=== PATIENT | male | born 1955 | race African-American/Black ===

== ENCOUNTER 2016-09-25 20:34 | Emergency (ER) | payer BC, MEDICAID ==
[~2016-09-25] VITALS: Ht 190.5 cm; Wt 77.0 kg
[~2016-09-25 20:34] MED LIST: AMLO10TA4 PO; Folic Acid PO; GABA300C PO; LISI-652 PO; Multivitamins,Ther W-Minerals PO; OMEP20CA10 PO; OMEP40CA34 PO; PANT40VI15 PO; Propranolol Hcl PO; Thiamine Hcl PO
[2016-09-25] MEDS ORDERED: TRAMADOL 50MG TABLET PO ONE (23:00)
[2016-09-25] MEDS ORDERED: KETOROLAC 60MG/2ML VIAL IM ONE (23:00)
[2016-09-26 04:27] VITALS: BP 132/60
== END 2016-09-26 04:31 | disposition home or self-care (01) ==
LOC: ER 20:43
DX: S00.83XA Contusion of other part of head, initial encounter (principal); W22.09XA Striking against other stationary object, initial encounter; I10 Essential (primary) hypertension; Y93.89 Activity, other specified; Y92.89 Other specified places as the place of occurrence of the external cause; Z96.641 Presence of right artificial hip joint
CPT/HCPCS: 70450; 96374; 99284; J1885; Z7610

== ENCOUNTER 2016-10-12 14:17 | Emergency (ER) | payer BC ==
[~2016-10-12] VITALS: Ht 190.5 cm; Wt 100.0 kg
[2016-10-12] MEDS ORDERED: KETOROLAC 60MG/2ML VIAL IM ONE (16:00)
[2016-10-12 20:30] VITALS: BP 130/68
== END 2016-10-12 20:42 | disposition home or self-care (01) ==
LOC: ER 18:14
DX: R51 Headache (principal); M54.2 Cervicalgia; G62.9 Polyneuropathy, unspecified; I10 Essential (primary) hypertension; Z99.3 Dependence on wheelchair; Y08.89XA Assault by other specified means, initial encounter; Y93.89 Activity, other specified; Y92.89 Other specified places as the place of occurrence of the external cause; Y99.8 Other external cause status
CPT/HCPCS: 70450; 70486; 96372; 99284; J1885; Z7610

== ENCOUNTER 2016-10-27 16:19 | Inpatient (IN) | payer BC ==
[~2016-10-27] VITALS: Ht 190.5 cm; Wt 72.1 kg
[2016-10-27] MEDS ORDERED: SODIUM CHLORIDE 0.9% 1,000 ML IV ONE ×2 (17:08→19:15)
[2016-10-27] MEDS ORDERED: KETOROLAC 30MG/ML VIAL IV STA (17:08)
[2016-10-27 17:31] LABS: BASOPHILS % 0.6 % (0.0-2.0); EOSINOPHILS % 0.2 % (0.0-5.0); HEMATOCRIT. 37.4 % (42.0-52.0); HEMOGLOBIN. 12.2 g/dL (14.0-18.0); LYMPHOCYTES % 38.5 % (20.0-50.0); MEAN CORPUSCULAR HEMOGLOBIN 33.7 pg (28.0-32.0); MEAN CORPUSCULAR VOLUME 103.1 fL (80.0-94.0); MONOCYTES % 7.9 % (2.0-8.0); NEUTROPHILS % 52.8 % (40.0-76.0); RED BLOOD CELL COUNT 3.63 mill/uL (4.7-6.1); RED CELL DISTRIBUTION WIDTH 18.9 % (11.6-14.6)
[2016-10-27 17:36] LABS: INR 1.1; PROTHROMBIN TIME 11.7 sec (9.4-11.6)
[2016-10-27 17:37] LABS: CHLORIDE 100 mEq/L (98-107)
[2016-10-27 17:38] LABS: CARBON DIOXIDE 13 mEq/L (21-32)
[2016-10-27 17:44] LABS: PLATELET 45 x1000/uL (130-400)
[2016-10-27 17:46] LABS: ETHANOL BLOOD 199 mg/dL; TROPONIN I < 0.02 ng/mL (0.00-0.04)
[2016-10-27] MEDS ORDERED: DILTIAZEM HCL 5MG/ML 5ML VIAL IV ONE ×4 (18:15→19:15)
[2016-10-27] MEDS ORDERED: ASPIRIN 81MG TABLET PO ONE (18:45)
[2016-10-27] MEDS ORDERED: SODIUM CHLORIDE 0.9% 1,000 ML IV SCH (19:07)
[2016-10-27] MEDS ORDERED: IBUPROFEN 600MG TABLET PO PRN (19:15)
[2016-10-27] MEDS ORDERED: DILTIAZEM HCL 240MG ER (24HR) PO ONE (19:15)
[2016-10-27] MEDS ORDERED: ACETAMINOPHEN 325MG TABLET PO PRN ×2 (19:15→23:15)
[2016-10-27] MEDS ORDERED: ENOXAPARIN 80MG/0.8ML SYR SUBCUT ONE (19:30)
[2016-10-27] MEDS ORDERED: DILTIAZEM HCL 125 MG in DEXT 5% WATER 100 ML IV ONE (19:30)
[2016-10-27] MEDS ORDERED: DILTIAZEM HCL 125 MG in DEXTROSE 5% WATER 125 ML IV PRN (19:45)
[2016-10-27 21:41] VITALS: BP 149/72
[2016-10-27 22:30] VITALS: BP 3/96
[2016-10-27 23:00] VITALS: BP 144/82
[2016-10-27] MEDS: THIAMINE HCL 100MG TABLET PO SCH (23:15)
[2016-10-27] MEDS ORDERED: IPRATROPIUM/ALBUTEROL 0.5-3(2.5)MG/3ML NEB INH PRN (23:15)
[2016-10-27] MEDS ORDERED: GUAIFENESIN 200MG/10ML SUGAR FREE UDC PO PRN (23:15)
[2016-10-27] MEDS: MULTIVITAMINS,THER W-MINERALS TABLET PO SCH (23:15)
[2016-10-27] MEDS ORDERED: CLONIDINE 0.1MG TABLET PO PRN (23:15)
[2016-10-27] MEDS ORDERED: MAGNESIUM/ALUMINUM HYDROXIDE/SIMETHICONE 30ML UDC PO PRN (23:15)
[2016-10-27] MEDS ORDERED: DOCUSATE SODIUM 100MG CAPSULE PO PRN (23:15)
[2016-10-27] MEDS: ONDANSETRON HCL 4MG/2ML VIAL IV PRN (23:41)
[2016-10-27 23:44] VITALS: BP 147/94
[2016-10-27] MEDS ORDERED: MORPHINE SULFATE 4 MG/ML CPJ (NOT FOR IM USE) IV PRN (23:45)
[2016-10-28] VITALS (45 sets, daily range): BP systolic 117–175; BP diastolic 70–112
[2016-10-28] MEDS: MORPHINE SULFATE 4 MG/ML CPJ (NOT FOR IM USE) IV PRN ×5 (00:27→18:11)
[2016-10-28] MEDS: MVI, ADULT NO.1 10 ML, FOLIC ACID 1 MG, THIAMINE HCL 100 MG in SODIUM CHLORIDE 0.9% 1,0... IV NR ×8 (01:41→04:04)
[2016-10-28] MEDS: HYDROCODONE/ACETAMINOPHEN 5/325MG TABLET PO PRN (02:53)
[2016-10-28] MEDS: DILTIAZEM HCL 125 MG in DEXT 5% WATER 100 ML IV PRN ×3 (04:05→21:35)
[2016-10-28] MEDS: ONDANSETRON HCL 4MG/2ML VIAL IV PRN ×2 (05:53→12:46)
[2016-10-28 06:22] LABS: HEMOGLOBIN. 12.5 g/dL (14.0-18.0); MEAN CORPUSCULAR HEMOGLOBIN 33.8 pg (28.0-32.0); MEAN CORPUSCULAR VOLUME 105.1 fL (80.0-94.0); MEAN PLATELET VOLUME 7.6 fl (7.4-10.4); RED BLOOD CELL COUNT 3.71 mill/uL (4.7-6.1); RED CELL DISTRIBUTION WIDTH 19.6 % (11.6-14.6)
[2016-10-28 06:36] LABS: PLATELET 42 x1000/uL (130-400)
[2016-10-28 07:42] LABS: CHLORIDE 104 mEq/L (98-107); CREATINE KINASE 849 IU/L (39-308); CREATINE KINASE MB FRACTION 2.6 ng/mL (0.5-3.6); TROPONIN I < 0.02 ng/mL (0.00-0.04)
[2016-10-28 07:45] LABS: CARBON DIOXIDE 7 mEq/L (21-32)
[2016-10-28 07:50] LABS: HDL CHOLESTEROL 81 mg/dL (40-59); LDL CHOLESTEROL 133 mg/dL (5-100)
[2016-10-28] MEDS: MULTIVITAMINS,THER W-MINERALS TABLET PO SCH (08:38)
[2016-10-28] MEDS: FOLIC ACID 1MG TABLET PO SCH (08:38)
[2016-10-28] MEDS: THIAMINE HCL 100MG TABLET PO SCH (08:38)
[2016-10-28 09:28] LABS: PLATELET ESTIMATE DECREASED
[2016-10-28] MEDS: METOCLOPRAMIDE HCL 10MG/2ML VIAL IV SCH ×2 (12:46→18:12)
[2016-10-28] MEDS: LORAZEPAM 2MG/ML CPJ IV PRN (16:13)
[2016-10-28 16:54] LABS: CREATINE KINASE 587 IU/L (39-308); CREATINE KINASE MB FRACTION 2.8 ng/mL (0.5-3.6); TROPONIN I < 0.02 ng/mL (0.00-0.04)
[2016-10-28 17:01] LABS: BG BASE EXCESS -5.8 mmol/L (-2.0-2.0); BG CARBOXYHEMOGLOBIN 0.3 % (0.5-1.5); BG DEOXYHEMOGLOBIN 2.6 % (0.0-5.0); BG FRACTION INSPIRED OXYGEN 21; BG HCO3 ACT 17.9 mmol/L (22.0-26.0); BG METHEMOGLOBIN 0.3 % (0.0-1.5); BG OXYGEN SATURATION 97.4 % (92.0-98.5); BG OXYHEMOGLOBIN 96.8 % (94.0-97.0); BG PCO2 30.2 mmHg (35.0-45.0); BG PH 7.391 (7.350-7.450); BG PO2 93.7 mmHg (75.0-100.0); BG SAMPLE SITE RIGHT BRACHIAL; BG TOTAL HEMOGLOBIN 13.5 g/dL (12.0-18.0); BG VENT MODE ROOM AIR
[2016-10-28 17:45] LABS: HEPATITIS B SURFACE ANTIGEN NEGATIVE
[2016-10-28 18:13] LABS: HEPATITIS B CORE AB IGM NEGATIVE
[2016-10-28 18:15] LABS: HEPATITIS A AB IGM NEGATIVE (NEGATIVE)
[2016-10-28 19:19] LABS: CARBON DIOXIDE 22 mEq/L (21-32); CHLORIDE 103 mEq/L (98-107)
[2016-10-28] MEDS: METOPROLOL TARTRATE 50MG TABLET PO SCH (20:54)
[2016-10-28] MEDS: ATORVASTATIN CALCIUM 10MG TABLET PO SCH (20:54)
[2016-10-28] MEDS ORDERED: MAGNESIUM 2 G PREMIX 50 ML IV NR (22:00)
[2016-10-29] VITALS (46 sets, daily range): BP systolic 99–166; BP diastolic 58–128
[2016-10-29] MEDS: LORAZEPAM 2MG/ML CPJ IV PRN (04:09)
[2016-10-29] MEDS: DILTIAZEM HCL 125 MG in DEXT 5% WATER 100 ML IV PRN (04:47)
[2016-10-29 05:32] LABS: HEMATOCRIT. 40.1 % (42.0-52.0); HEMOGLOBIN. 13.4 g/dL (14.0-18.0); MEAN CORPUSCULAR HEMOGLOBIN 34.1 pg (28.0-32.0); MEAN CORPUSCULAR VOLUME 101.9 fL (80.0-94.0); MEAN PLATELET VOLUME 8.1 fl (7.4-10.4); RED BLOOD CELL COUNT 3.93 mill/uL (4.7-6.1); RED CELL DISTRIBUTION WIDTH 19.3 % (11.6-14.6)
[2016-10-29 06:00] LABS: PLATELET 40 x1000/uL (130-400)
[2016-10-29 06:02] LABS: CARBON DIOXIDE 23 mEq/L (21-32); CHLORIDE 96 mEq/L (98-107); PHOSPHORUS 1.1 mg/dL (2.5-4.9)
[2016-10-29] MEDS: METOCLOPRAMIDE HCL 10MG/2ML VIAL IV SCH ×4 (06:20→17:02)
[2016-10-29 08:13] LABS: AMMONIA 24 uMol/L (<32)
[2016-10-29 08:18] LABS: NUCLEATED RED BLOOD CELLS 4 /100 WBC; PLATELET ESTIMATE SLIGHTLY DECREASED
[2016-10-29] MEDS: METOPROLOL TARTRATE 50MG TABLET PO SCH ×2 (09:54→21:06)
[2016-10-29] MEDS: THIAMINE HCL 100MG TABLET PO SCH (09:54)
[2016-10-29] MEDS: FOLIC ACID 1MG TABLET PO SCH (09:54)
[2016-10-29] MEDS: MORPHINE SULFATE 4 MG/ML CPJ (NOT FOR IM USE) IV PRN ×2 (09:55→16:13)
[2016-10-29] MEDS: MULTIVITAMINS,THER W-MINERALS TABLET PO SCH (09:57)
[2016-10-29] MEDS: HYDROCODONE/ACETAMINOPHEN 5/325MG TABLET PO PRN (12:20)
[2016-10-29] MEDS ORDERED: CLONIDINE 0.1MG TABLET PO PRN (13:45)
[2016-10-29] MEDS ORDERED: GUAIFENESIN 200MG/10ML SUGAR FREE UDC PO PRN (13:45)
[2016-10-29] MEDS ORDERED: DIPHENHYDRAMINE 50MG/ML VIAL IV PRN (13:45)
[2016-10-29] MEDS ORDERED: MAGNESIUM/ALUMINUM HYDROXIDE/SIMETHICONE 30ML UDC PO PRN (13:45)
[2016-10-29] MEDS ORDERED: DOCUSATE SODIUM 100MG CAPSULE PO PRN (13:45)
[2016-10-29] MEDS ORDERED: SODIUM CHLORIDE 0.9% 1,000 ML IV SCH (14:00)
[2016-10-29] MEDS: DILTIAZEM HCL 90MG TABLET PO SCH ×2 (14:02→21:06)
[2016-10-29] MEDS ORDERED: POTASSIUM PHOS,M-BASIC-D-BASIC 30 MMOL in DEXT 5% WATER 500 ML IV NR (15:30)
[2016-10-29] MEDS ORDERED: HYDRALAZINE 20MG/ML VIAL IV PRN (15:45)
[2016-10-29] MEDS: LACTATED RINGERS 1,000 ML IV SCH (17:53)
[2016-10-29] MEDS: ATORVASTATIN CALCIUM 10MG TABLET PO SCH (21:06)
[2016-10-30] VITALS (31 sets, daily range): BP systolic 116–158; BP diastolic 79–108
[2016-10-30] MEDS: LACTATED RINGERS 1,000 ML IV SCH ×4 (00:13→21:40)
[2016-10-30] MEDS: METOCLOPRAMIDE HCL 10MG/2ML VIAL IV SCH ×4 (00:13→17:59)
[2016-10-30] MEDS: DILTIAZEM HCL 90MG TABLET PO SCH ×3 (05:12→22:02)
[2016-10-30] MEDS ORDERED: SODIUM BICARBONATE 4% (2.4MEQ) 5ML VIAL IV ONE (08:21)
[2016-10-30] MEDS ORDERED: LIDOCAINE HCL 1% 20ML VIAL (Pyxis) INJ ONE (08:21)
[2016-10-30] MEDS: MULTIVITAMINS,THER W-MINERALS TABLET PO SCH (08:34)
[2016-10-30] MEDS: METOPROLOL TARTRATE 50MG TABLET PO SCH ×2 (08:34→20:52)
[2016-10-30] MEDS: FOLIC ACID 1MG TABLET PO SCH (08:34)
[2016-10-30] MEDS: THIAMINE HCL 100MG TABLET PO SCH (08:34)
[2016-10-30] MEDS: ONDANSETRON HCL 4MG/2ML VIAL IV PRN (09:38)
[2016-10-30] MEDS: MORPHINE SULFATE 4 MG/ML CPJ (NOT FOR IM USE) IV PRN ×2 (10:29→19:25)
[2016-10-30] MEDS ORDERED: PANTOPRAZOLE SODIUM 40 MG/VIAL IV SCH (12:00)
[2016-10-30] MEDS: ACETAMINOPHEN 325MG TABLET PO PRN (18:03)
[2016-10-30] MEDS: ATORVASTATIN CALCIUM 10MG TABLET PO SCH (20:52)
[2016-10-31] VITALS (20 sets, daily range): BP systolic 87–158; BP diastolic 66–99
[2016-10-31] MEDS: METOCLOPRAMIDE HCL 10MG/2ML VIAL IV SCH ×5 (00:06→23:03)
[2016-10-31] MEDS: LACTATED RINGERS 1,000 ML IV SCH ×4 (04:26→17:55)
[2016-10-31] MEDS: DILTIAZEM HCL 90MG TABLET PO SCH ×3 (05:03→21:45)
[2016-10-31] MEDS: MORPHINE SULFATE 4 MG/ML CPJ (NOT FOR IM USE) IV PRN ×6 (05:23→23:43)
[2016-10-31 06:11] LABS: BASOPHILS % 0.1 % (0.0-2.0); EOSINOPHILS % 0.2 % (0.0-5.0); HEMATOCRIT. 34.9 % (42.0-52.0); HEMOGLOBIN. 11.8 g/dL (14.0-18.0); LYMPHOCYTES % 13.8 % (20.0-50.0); MEAN CORPUSCULAR VOLUME 100.5 fL (80.0-94.0); MEAN PLATELET VOLUME 8.6 fl (7.4-10.4); MONOCYTES % 10.2 % (2.0-8.0); NEUTROPHILS % 75.7 % (40.0-76.0); RED BLOOD CELL COUNT 3.47 mill/uL (4.7-6.1); RED CELL DISTRIBUTION WIDTH 18.9 % (11.6-14.6)
[2016-10-31 06:36] LABS: PLATELET 38 x1000/uL (130-400)
[2016-10-31 07:09] LABS: CHLORIDE 94 mEq/L (98-107)
[2016-10-31 07:21] LABS: CARBON DIOXIDE 23 mEq/L (21-32); PHOSPHORUS 1.7 mg/dL (2.5-4.9)
[2016-10-31] MEDS: PANTOPRAZOLE SODIUM 40 MG/VIAL IV SCH (08:05)
[2016-10-31] MEDS: MULTIVITAMINS,THER W-MINERALS TABLET PO SCH (08:06)
[2016-10-31] MEDS: METOPROLOL TARTRATE 50MG TABLET PO SCH ×2 (08:06→21:45)
[2016-10-31] MEDS: FOLIC ACID 1MG TABLET PO SCH (08:06)
[2016-10-31] MEDS: THIAMINE HCL 100MG TABLET PO SCH (08:06)
[2016-10-31] MEDS: HYDROCODONE/ACETAMINOPHEN 5/325MG TABLET PO PRN (08:07)
[2016-10-31] MEDS ORDERED: POTASSIUM CHLORIDE INJ 40 MEQ in DEXT 5% WATER 250 ML IV NR (10:00)
[2016-10-31] MEDS ORDERED: MAGNESIUM 2 G PREMIX 50 ML IV NR (10:00)
[2016-10-31] MEDS ORDERED: POTASSIUM PHOS,M-BASIC-D-BASIC 20 MMOL in DEXT 5% WATER 243.3333 ML IV SCH (11:00)
[2016-10-31] MEDS: ACETAMINOPHEN 325MG TABLET PO PRN (12:04)
[2016-10-31] MEDS ORDERED: ZOLPIDEM TARTRATE 5MG TABLET PO PRN (21:00)
[2016-10-31] MEDS: ATORVASTATIN CALCIUM 10MG TABLET PO SCH (21:44)
[2016-10-31] MEDS: ONDANSETRON HCL 4MG/2ML VIAL IV PRN (21:45)
[2016-10-31] MEDS: LORAZEPAM 2MG/ML CPJ IV PRN (21:45)
[2016-11-01] VITALS (8 sets, daily range): BP systolic 129–172; BP diastolic 74–96
[2016-11-01] MEDS: LACTATED RINGERS 1,000 ML IV SCH ×2 (01:23→10:47)
[2016-11-01] MEDS: DILTIAZEM HCL 90MG TABLET PO SCH ×2 (05:00→14:01)
[2016-11-01] MEDS: MORPHINE SULFATE 4 MG/ML CPJ (NOT FOR IM USE) IV PRN (05:00)
[2016-11-01] MEDS: METOCLOPRAMIDE HCL 10MG/2ML VIAL IV SCH ×2 (05:00→11:57)
[2016-11-01] MEDS: HYDROCODONE/ACETAMINOPHEN 5/325MG TABLET PO PRN ×2 (06:31→12:09)
[2016-11-01 07:33] LABS: CHLORIDE 90 mEq/L (98-107)
[2016-11-01 07:38] LABS: HEMATOCRIT. 34.7 % (42.0-52.0); HEMOGLOBIN. 11.5 g/dL (14.0-18.0); MEAN CORPUSCULAR HEMOGLOBIN 33.8 pg (28.0-32.0); MEAN CORPUSCULAR VOLUME 101.8 fL (80.0-94.0); MEAN PLATELET VOLUME 7.7 fl (7.4-10.4); PLATELET 57 x1000/uL (130-400); RED BLOOD CELL COUNT 3.41 mill/uL (4.7-6.1); RED CELL DISTRIBUTION WIDTH 19.3 % (11.6-14.6)
[2016-11-01 07:48] LABS: AMYLASE 62 IU/L (25-115); CARBON DIOXIDE 28 mEq/L (21-32); PHOSPHORUS 2.5 mg/dL (2.5-4.9)
[2016-11-01] MEDS: PANTOPRAZOLE SODIUM 40 MG/VIAL IV SCH (08:52)
[2016-11-01] MEDS: MULTIVITAMINS,THER W-MINERALS TABLET PO SCH (08:52)
[2016-11-01] MEDS: FOLIC ACID 1MG TABLET PO SCH (08:52)
[2016-11-01] MEDS: THIAMINE HCL 100MG TABLET PO SCH (08:52)
[2016-11-01] MEDS: METOPROLOL TARTRATE 50MG TABLET PO SCH (08:53)
[2016-11-01] MEDS ORDERED: POTASSIUM CHLORIDE INJ 40 MEQ in DEXT 5% WATER 500 ML IV SCH (12:00)
[2016-11-01] MEDS ORDERED: MAGNESIUM 2 G PREMIX 50 ML IV ONE (13:15)
[2016-11-01] MEDS ORDERED: THIA100T72 PO (13:42)
[2016-11-01] MEDS ORDERED: FOLI-43 PO (13:42)
[2016-11-01] MEDS ORDERED: Multivitamins,Ther W-Minerals PO (13:42)
[2016-11-01] MEDS ORDERED: ATOR10TA PO (13:42)
[2016-11-01] MEDS ORDERED: METO50TA5 PO (13:42)
[2016-11-01] MEDS ORDERED: DILT240C52 PO (13:42)
[2016-11-01] MEDS ORDERED: MAGNESIUM 2 G PREMIX 50 ML IV NR (15:00)
[2016-11-01 16:26] LABS: PLATELET ESTIMATE DECREASED
== END 2016-11-01 17:20 | disposition home or self-care (01) | DRG 282 ==
LOC: ER 17:22 → 3WST 19:15 → EDBEDREQSVC 19:17 → ENRESERV 19:28 → CVICU 10-28 00:12 → 5WST 10-31 21:14
PROVIDERS: ADMIT Internal Medicine; ATTEND Internal Medicine
PROC: 02HV33Z Insertion of Infusion Device into Superior Vena Cava, Percutaneous Approach (ICD-10-PCS; principal; 2016-10-30)
PROC: B548ZZA Ultrasonography of Superior Vena Cava, Guidance (ICD-10-PCS; 2016-10-30)
DX: K85.20 Alcohol induced acute pancreatitis without necrosis or infection (principal); D61.818 Other pancytopenia; D68.4 Acquired coagulation factor deficiency; E87.2 Acidosis; I48.0 Paroxysmal atrial fibrillation; I10 Essential (primary) hypertension; D75.89 Other specified diseases of blood and blood-forming organs; K76.9 Liver disease, unspecified; K21.9 Gastro-esophageal reflux disease without esophagitis; E78.5 Hyperlipidemia, unspecified; E87.6 Hypokalemia; K74.60 Unspecified cirrhosis of liver; N40.0 Benign prostatic hyperplasia without lower urinary tract symptoms; Y90.6 Blood alcohol level of 120-199 mg/100 ml; E83.39 Other disorders of phosphorus metabolism; E83.42 Hypomagnesemia; K76.0 Fatty (change of) liver, not elsewhere classified; F10.229 Alcohol dependence with intoxication, unspecified; R73.9 Hyperglycemia, unspecified; Z79.899 Other long term (current) drug therapy; Z86.73 Personal history of transient ischemic attack (TIA), and cerebral infarction without residual deficits
CPT/HCPCS: 36415; 36569; 36600; 71010; 76700; 76937; 78580; 80048; 80053; 80061; 80076; 82140; 82150; 82248; 82375; 82550; 82553; 82805; 83690; 83735; 84100; 84443; 84484; 85025; 85379; 85610; 86705; 86709; 86803; 87186; 87340; 93005; 93306; 93970; 96361; 96365; 96372; 96375; 96376; 97163; 97530; 97542; 99291; C1725; C9113; G0482; J0360; J1200; J1650; J1885; J2060; J2270; J2405; J2765; J3411; J3475; J3480; J3490; J7030; J7050; J7060; J7120; A4315

== ENCOUNTER → 2016-12-23 | Emergency (ER) | payer BC, MEDICAID ==
[~2016-12-23] VITALS: Ht 188 cm; Wt 78.0 kg
[~2016-12-23] MED LIST changes: -AMLO10TA4 PO; +ATOR10TA PO; +DILT240C52 PO; +FOLI-43 PO; -Folic Acid PO; +KETOROLAC 60MG/2ML VIAL IM ONE; -LISI-652 PO; +METO50TA5 PO; -OMEP20CA10 PO; -PANT40VI15 PO; -Propranolol Hcl PO; +THIA100T72 PO; -Thiamine Hcl PO
[2016-12-23 19:28] VITALS: BP 140/93
== END ==
LOC: ER 20:47
DX: M16.12 Unilateral primary osteoarthritis, left hip (principal); M25.552 Pain in left hip; F17.200 Nicotine dependence, unspecified, uncomplicated; I10 Essential (primary) hypertension; M54.9 Dorsalgia, unspecified; Z96.641 Presence of right artificial hip joint; Z99.3 Dependence on wheelchair; W08.XXXA Fall from other furniture, initial encounter; Y93.89 Activity, other specified; Y92.89 Other specified places as the place of occurrence of the external cause; Y99.8 Other external cause status
CPT/HCPCS: 72100; 72220; 73502; 99284

== ENCOUNTER 2017-03-27 11:25 | Emergency (ER) | payer MEDICAID ==
[~2017-03-27] VITALS: Ht 182.9 cm; Wt 81.0 kg
[~2017-03-27 11:25] MED LIST changes: -KETOROLAC 60MG/2ML VIAL IM ONE; +METO-539 PO; -METO50TA5 PO
[2017-03-27] MEDS ORDERED: SODIUM CHLORIDE 0.9% 1,000 ML IV ONE (12:22)
[2017-03-27] MEDS ORDERED: ONDANSETRON HCL 4MG/2ML VIAL IV STA (12:22)
[2017-03-27] MEDS ORDERED: AMLODIPINE 5MG TABLET PO ONE (13:15)
[2017-03-27 13:20] LABS: BASOPHILS % 0.1 % (0.0-2.0); HEMATOCRIT. 38.7 % (42.0-52.0); HEMOGLOBIN. 12.6 g/dL (14.0-18.0); LYMPHOCYTES % 9.3 % (20.0-50.0); MEAN CORPUSCULAR HEMOGLOBIN 32.9 pg (28.0-32.0); MEAN CORPUSCULAR VOLUME 101.3 fL (80.0-94.0); MEAN PLATELET VOLUME 7.1 fl (7.4-10.4); MONOCYTES % 4.4 % (2.0-8.0); NEUTROPHILS % 86.2 % (40.0-76.0); PLATELET 139 x1000/uL (130-400); RED BLOOD CELL COUNT 3.82 mill/uL (4.7-6.1); RED CELL DISTRIBUTION WIDTH 15.8 % (11.6-14.6)
[2017-03-27 13:27] LABS: INR 1.1
[2017-03-27 13:32] LABS: CHLORIDE 103 mEq/L (98-107); TROPONIN I < 0.02 ng/mL (0.00-0.04)
[2017-03-27] MEDS ORDERED: KETOROLAC 30MG/ML VIAL IV NR (14:21)
[2017-03-27 14:31] LABS: CLARITY URINE CLEAR (CLEAR); COLOR URINE YELLOW (YELLOW); KETONES URINE 3+ (NEGATIVE); LEUKOCYTE ESTERASE URINE NEGATIVE (NEGATIVE); NITRITE URINE NEGATIVE (NEGATIVE); OCCULT BLOOD URINE TRACE (NEGATIVE); PH URINE 5.5 (4.5-8.0); PROTEIN URINE 2+ (NEGATIVE); SPECIFIC GRAVITY URINE 1.019 (1.005-1.030); UROBILINOGEN URINE 0.2 E.U./dL (0.2-1.0)
[2017-03-27] MEDS: METOCLOPRAMIDE HCL 10MG/2ML VIAL IV NR ×2 (14:51→16:50)
[2017-03-27] MEDS ORDERED: CLONIDINE 0.1MG TABLET PO ONE (16:45)
[2017-03-27 20:00] VITALS: BP 183/89
== END 2017-03-27 20:18 | disposition home or self-care (01) ==
LOC: ER 11:34
DX: K29.00 Acute gastritis without bleeding (principal); I10 Essential (primary) hypertension; G44.89 Other headache syndrome; Z96.649 Presence of unspecified artificial hip joint
CPT/HCPCS: 36415; 70450; 71045; 80053; 81001; 84484; 85025; 85610; 93005; 96361; 96374; 96375; 96376; 99285; J1885; J2405; J7030

== ENCOUNTER 2018-04-30 12:43 | Inpatient (IN) | payer MEDICAID ==
[~2018-04-30] VITALS: Ht 190.5 cm; Wt 79.8 kg
[~2018-04-30 12:43] MED LIST changes: +AMLO5TAB88 PO; +ASPI-1158 PO; -ATOR10TA PO; +CLON0.1T14 PO; -DILT240C52 PO; -GABA300C PO; +GABA800T97 PO; +LOSA25TA3 PO; +LOSA50TA3 PO; -METO-539 PO; +TRAM50TA3 PO
[2018-04-30 14:54] LABS: BG BASE EXCESS -1.1 mmol/L (-2.0-2.0); BG CARBOXYHEMOGLOBIN 0.4 % (0.5-1.5); BG DEOXYHEMOGLOBIN 6.7 % (0.0-5.0); BG HCO3 ACT 23.3 mmol/L (22.0-26.0); BG METHEMOGLOBIN 0.3 % (0.0-1.5); BG OXYGEN SATURATION 93.3 % (92.0-98.5); BG OXYHEMOGLOBIN 92.6 % (94.0-97.0); BG PCO2 37.5 mmHg (35.0-45.0); BG PH 7.411 (7.350-7.450); BG PO2 69.8 mmHg (75.0-100.0); BG SAMPLE SITE RIGHT RADIAL; BG VENT MODE ROOM AIR
[2018-04-30] MEDS ORDERED: FOLIC ACID 1 MG, THIAMINE HCL 100 MG, MVI, ADULT NO.1 10 ML in DEXTROSE 5% WATER 1,000 ML IV ONE ×4 (15:00)
[2018-04-30 15:10] LABS: HEMOGLOBIN. 8.7 g/dL (14.0-18.0); MEAN CORPUSCULAR HEMOGLOBIN 26.8 pg (28.0-32.0); MEAN PLATELET VOLUME 7.5 fl (7.4-10.4); PLATELET 238 x1000/uL (130-400); RED BLOOD CELL COUNT 3.25 mill/uL (4.7-6.1); RED CELL DISTRIBUTION WIDTH 21.8 % (11.6-14.6)
[2018-04-30 15:17] LABS: INR 1.1; PARTIAL THROMBOPLASTIN TIME 27.8 sec (23.4-31.0); PROTHROMBIN TIME 10.7 sec (9.1-11.1)
[2018-04-30 15:25] LABS: CHLORIDE 107 mEq/L (98-107)
[2018-04-30 15:33] LABS: ETHANOL BLOOD < 10 mg/dL
[2018-04-30 15:34] LABS: CREATINE KINASE 706 IU/L (39-308)
[2018-04-30 15:36] LABS: CREATINE KINASE MB FRACTION 3.6 ng/mL (0.5-3.6)
[2018-04-30 15:50] LABS: ATYPICAL LYMPHOCYTES 2
[2018-04-30 15:54] LABS: PLATELET ESTIMATE NORMAL
[2018-04-30] MEDS ORDERED: LEVOFLOXACIN 750MG PREMIX 150 ML IV ONE (17:00)
[2018-04-30] MEDS ORDERED: SODIUM CHLORIDE 0.9% 1,000 ML IV ONE (19:10)
[2018-04-30] MEDS ORDERED: KETOROLAC 30MG/ML VIAL IV ONE (19:15)
[2018-04-30] MEDS ORDERED: LORAZEPAM 2MG/ML CPJ IV ONE (19:15)
[2018-04-30 23:50] VITALS: BP 141/96
[2018-05-01] MEDS ORDERED: ZOLPIDEM TARTRATE 5MG TABLET PO PRN (01:00)
[2018-05-01 04:00] VITALS: BP 136/80
[2018-05-01 06:36] LABS: HEMATOCRIT. 28.5 % (42.0-52.0); HEMOGLOBIN. 8.8 g/dL (14.0-18.0); MEAN CORPUSCULAR HEMOGLOBIN 26.9 pg (28.0-32.0); MEAN CORPUSCULAR VOLUME 86.9 fL (80.0-94.0); MEAN PLATELET VOLUME 7.6 fl (7.4-10.4); PLATELET 236 x1000/uL (130-400); RED BLOOD CELL COUNT 3.28 mill/uL (4.7-6.1); RED CELL DISTRIBUTION WIDTH 21.8 % (11.6-14.6)
[2018-05-01 07:15] LABS: CHLORIDE 108 mEq/L (98-107)
[2018-05-01 07:26] LABS: LDL CHOLESTEROL 58 mg/dL (5-100)
[2018-05-01 07:27] LABS: HDL CHOLESTEROL 54 mg/dL (40-59)
[2018-05-01 08:00] VITALS: BP 144/91
[2018-05-01] MEDS: MULTIVITAMINS,THER W-MINERALS TABLET PO SCH (08:32)
[2018-05-01] MEDS: LOSARTAN POTASSIUM 25 MG TABLET PO SCH ×2 (08:32→21:05)
[2018-05-01] MEDS: GABAPENTIN 400MG CAPSULE PO SCH ×3 (08:33→16:58)
[2018-05-01] MEDS: ASPIRIN 81MG TABLET PO SCH (08:33)
[2018-05-01] MEDS: AMLODIPINE 5MG TABLET PO SCH (08:33)
[2018-05-01] MEDS: THIAMINE HCL 100MG TABLET PO SCH (08:33)
[2018-05-01] MEDS: FOLIC ACID 1MG TABLET PO SCH (08:33)
[2018-05-01] MEDS: OMEPRAZOLE 20MG CAPSULE EXTENDED RELEASE PO SCH (08:33)
[2018-05-01] MEDS: ENOXAPARIN 40MG/0.4ML SYR SUBCUT SCH (08:34)
[2018-05-01 12:00] VITALS: BP 148/71
[2018-05-01 16:00] VITALS: BP 163/67
[2018-05-01 16:17] LABS: PLATELET ESTIMATE NORMAL
[2018-05-01 20:00] VITALS: BP 119/77
[2018-05-01 21:35] LABS: VITAMIN B12 SERUM 522 pg/mL (211-911)
[2018-05-01 21:36] LABS: FOLIC ACID (FOLATE) SERUM > 20.00 ng/mL (>5.38)
[2018-05-02 00:27] VITALS: BP 121/69
[2018-05-02 04:00] VITALS: BP 132/88
[2018-05-02 07:24] LABS: HEMATOCRIT. 32.2 % (42.0-52.0); HEMOGLOBIN. 9.7 g/dL (14.0-18.0); MEAN CORPUSCULAR HEMOGLOBIN 26.5 pg (28.0-32.0); MEAN CORPUSCULAR VOLUME 88.1 fL (80.0-94.0); RED BLOOD CELL COUNT 3.66 mill/uL (4.7-6.1); RED CELL DISTRIBUTION WIDTH 22.3 % (11.6-14.6)
[2018-05-02 08:00] VITALS: BP_SYST 112; BP_DIAS 75; BP_DIAS 76
[2018-05-02] MEDS: OMEPRAZOLE 20MG CAPSULE EXTENDED RELEASE PO SCH (08:23)
[2018-05-02] MEDS: GABAPENTIN 400MG CAPSULE PO SCH ×3 (08:24→16:51)
[2018-05-02] MEDS: MULTIVITAMINS,THER W-MINERALS TABLET PO SCH (08:24)
[2018-05-02] MEDS: ASPIRIN 81MG TABLET PO SCH (08:24)
[2018-05-02] MEDS: FOLIC ACID 1MG TABLET PO SCH (08:25)
[2018-05-02] MEDS: AMLODIPINE 5MG TABLET PO SCH (08:25)
[2018-05-02] MEDS: THIAMINE HCL 100MG TABLET PO SCH (08:25)
[2018-05-02] MEDS: LOSARTAN POTASSIUM 25 MG TABLET PO SCH ×2 (08:25→20:35)
[2018-05-02] MEDS: ENOXAPARIN 40MG/0.4ML SYR SUBCUT SCH (08:26)
[2018-05-02 08:40] LABS: MEAN PLATELET VOLUME 7.7 fl (7.4-10.4); PLATELET 204 x1000/uL (130-400); PLATELET ESTIMATE NORMAL
[2018-05-02 09:25] LABS: CHLORIDE 109 mEq/L (98-107)
[2018-05-02 09:43] LABS: AMYLASE 74 IU/L (25-115)
[2018-05-02 10:51] LABS: T4 FREE 1.1 ng/dL (0.76-1.46)
[2018-05-02 12:00] VITALS: BP 104/64
[2018-05-02 16:00] VITALS: BP 110/68
[2018-05-02 20:00] VITALS: BP 120/89
[2018-05-02] MEDS: HYDROCODONE/ACETAMINOPHEN 5/325MG TABLET PO PRN (20:35)
[2018-05-03 00:05] VITALS: BP 120/80
[2018-05-03 04:00] VITALS: BP 112/75
[2018-05-03 06:55] LABS: CHLORIDE 108 mEq/L (98-107)
[2018-05-03 07:26] LABS: HEMATOCRIT. 24.8 % (42.0-52.0); HEMOGLOBIN. 7.6 g/dL (14.0-18.0); MEAN CORPUSCULAR HEMOGLOBIN 26.5 pg (28.0-32.0); MEAN CORPUSCULAR VOLUME 86.3 fL (80.0-94.0); MEAN PLATELET VOLUME 7.7 fl (7.4-10.4); PLATELET 275 x1000/uL (130-400); RED BLOOD CELL COUNT 2.87 mill/uL (4.7-6.1); RED CELL DISTRIBUTION WIDTH 21.2 % (11.6-14.6)
[2018-05-03 08:00] VITALS: BP 138/78
[2018-05-03] MEDS ORDERED: FAMOTIDINE 20MG TABLET PO SCH (09:00)
[2018-05-03] MEDS: MULTIVITAMINS,THER W-MINERALS TABLET PO SCH (09:11)
[2018-05-03] MEDS: AMLODIPINE 5MG TABLET PO SCH (09:11)
[2018-05-03] MEDS: GABAPENTIN 400MG CAPSULE PO SCH ×3 (09:11→16:54)
[2018-05-03] MEDS: LOSARTAN POTASSIUM 25 MG TABLET PO SCH ×2 (09:11→20:42)
[2018-05-03] MEDS: ASPIRIN 81MG TABLET PO SCH (09:11)
[2018-05-03] MEDS: FOLIC ACID 1MG TABLET PO SCH (09:11)
[2018-05-03] MEDS: THIAMINE HCL 100MG TABLET PO SCH (09:11)
[2018-05-03] MEDS: ENOXAPARIN 40MG/0.4ML SYR SUBCUT SCH (09:12)
[2018-05-03] MEDS: HYDROCODONE/ACETAMINOPHEN 5/325MG TABLET PO PRN (11:26)
[2018-05-03 12:00] VITALS: BP 139/86
[2018-05-03 12:55] LABS: PLATELET ESTIMATE NORMAL
[2018-05-03 16:00] VITALS: BP 126/62
[2018-05-03 19:31] LABS: TOTAL IRON BINDING CAPACITY 400 ug/dL (250-450)
[2018-05-03 20:00] VITALS: BP 132/80
[2018-05-03] MEDS: CEFTRIAXONE 1 G PREMIX 50 ML IV SCH (20:42)
[2018-05-03] MEDS: PANTOPRAZOLE SODIUM 40 MG/VIAL IV SCH (20:42)
[2018-05-03] MEDS ORDERED: CEFTRIAXONE 1,000 MG in DEXTROSE 5% WATER 50 ML IV SCH (21:00)
[2018-05-03] MEDS: HYDROCODONE/APAP 7.5/325MG 1 TAB TABLET PO PRN (21:41)
[2018-05-04] VITALS (7 sets, daily range): BP systolic 111–141; BP diastolic 68–93
[2018-05-04] MEDS: CEFTRIAXONE 1 G PREMIX 50 ML IV SCH (00:19)
[2018-05-04 01:26] LABS: HEMATOCRIT. 24.7 % (42.0-52.0); HEMOGLOBIN. 7.6 g/dL (14.0-18.0); MEAN CORPUSCULAR HEMOGLOBIN 26.4 pg (28.0-32.0); MEAN CORPUSCULAR VOLUME 86.3 fL (80.0-94.0); MEAN PLATELET VOLUME 7.7 fl (7.4-10.4); PLATELET 284 x1000/uL (130-400); RED BLOOD CELL COUNT 2.86 mill/uL (4.7-6.1); RED CELL DISTRIBUTION WIDTH 21.1 % (11.6-14.6)
[2018-05-04 06:57] LABS: CHLORIDE 107 mEq/L (98-107)
[2018-05-04 07:09] LABS: HEMOGLOBIN. 7.7 g/dL (14.0-18.0); MEAN CORPUSCULAR HEMOGLOBIN 25.7 pg (28.0-32.0); MEAN CORPUSCULAR VOLUME 86.3 fL (80.0-94.0); MEAN PLATELET VOLUME 7.5 fl (7.4-10.4); PLATELET 294 x1000/uL (130-400); RED BLOOD CELL COUNT 3.02 mill/uL (4.7-6.1); RED CELL DISTRIBUTION WIDTH 21.5 % (11.6-14.6)
[2018-05-04 07:33] LABS: PLATELET ESTIMATE NORMAL
[2018-05-04] MEDS: MULTIVITAMINS,THER W-MINERALS TABLET PO SCH (08:53)
[2018-05-04] MEDS: AMLODIPINE 5MG TABLET PO SCH (08:53)
[2018-05-04] MEDS: ASPIRIN 81MG TABLET PO SCH (08:54)
[2018-05-04] MEDS: THIAMINE HCL 100MG TABLET PO SCH (08:54)
[2018-05-04] MEDS: GABAPENTIN 400MG CAPSULE PO SCH ×3 (08:54→17:38)
[2018-05-04] MEDS: PANTOPRAZOLE SODIUM 40 MG/VIAL IV SCH ×2 (08:54→17:38)
[2018-05-04] MEDS: FOLIC ACID 1MG TABLET PO SCH (08:54)
[2018-05-04] MEDS: LOSARTAN POTASSIUM 25 MG TABLET PO SCH ×2 (08:54→22:50)
[2018-05-04] MEDS: ENOXAPARIN 40MG/0.4ML SYR SUBCUT SCH (08:55)
[2018-05-04] MEDS ORDERED: MORPHINE SULFATE 4 MG/ML CPJ (NOT FOR IM USE) IV PRN (15:00)
[2018-05-04 15:43] LABS: HEMATOCRIT 28.5 % (42.0-52.0); HEMOGLOBIN 8.7 g/dL (14.0-18.0); MEAN CORPUSCULAR HEMOGLOBIN 26.5 pg (28.0-32.0); MEAN CORPUSCULAR VOLUME 86.9 fL (80.0-94.0); PLATELET 337 x1000/uL (130-400); RED BLOOD CELL COUNT 3.28 mill/uL (4.7-6.1); RED CELL DISTRIBUTION WIDTH 21.5 % (11.6-14.6)
[2018-05-04] MEDS: SUCRALFATE 1 G/10 ML UDC PO SCH ×2 (17:38→22:50)
[2018-05-05 00:14] LABS: HEMATOCRIT 25.2 % (42.0-52.0); HEMOGLOBIN 7.8 g/dL (14.0-18.0); MEAN CORPUSCULAR HEMOGLOBIN 26.3 pg (28.0-32.0); MEAN CORPUSCULAR VOLUME 85.3 fL (80.0-94.0); PLATELET 345 x1000/uL (130-400); RED BLOOD CELL COUNT 2.95 mill/uL (4.7-6.1); RED CELL DISTRIBUTION WIDTH 21.4 % (11.6-14.6)
[2018-05-05 07:26] LABS: HEMATOCRIT. 26.3 % (42.0-52.0); MEAN CORPUSCULAR HEMOGLOBIN 26.1 pg (28.0-32.0); MEAN CORPUSCULAR VOLUME 85.6 fL (80.0-94.0); MEAN PLATELET VOLUME 7.3 fl (7.4-10.4); PLATELET 344 x1000/uL (130-400); RED BLOOD CELL COUNT 3.07 mill/uL (4.7-6.1); RED CELL DISTRIBUTION WIDTH 21.5 % (11.6-14.6)
[2018-05-05 08:01] LABS: CHLORIDE 105 mEq/L (98-107)
[2018-05-05 08:10] VITALS: BP_SYST 123; BP_SYST 129; BP_DIAS 61; BP_DIAS 87
[2018-05-05] MEDS: THIAMINE HCL 100MG TABLET PO SCH (08:23)
[2018-05-05] MEDS: AMLODIPINE 5MG TABLET PO SCH (08:23)
[2018-05-05] MEDS: GABAPENTIN 400MG CAPSULE PO SCH ×3 (08:23→17:43)
[2018-05-05] MEDS: PANTOPRAZOLE SODIUM 40 MG/VIAL IV SCH ×2 (08:23→17:43)
[2018-05-05] MEDS: SUCRALFATE 1 G/10 ML UDC PO SCH ×4 (08:23→21:20)
[2018-05-05] MEDS: LOSARTAN POTASSIUM 25 MG TABLET PO SCH ×2 (08:24→21:19)
[2018-05-05] MEDS: MULTIVITAMINS,THER W-MINERALS TABLET PO SCH (08:24)
[2018-05-05] MEDS: FOLIC ACID 1MG TABLET PO SCH (08:24)
[2018-05-05] MEDS: ASPIRIN 81MG TABLET PO SCH (08:24)
[2018-05-05 11:34] LABS: PLATELET ESTIMATE NORMAL
[2018-05-05] MEDS: HYDROCODONE/APAP 7.5/325MG 1 TAB TABLET PO PRN (11:36)
[2018-05-05 12:00] VITALS: BP 113/65
[2018-05-05 16:00] VITALS: BP 128/83
[2018-05-05 20:00] VITALS: BP 108/69
[2018-05-05 20:01] LABS: HEMATOCRIT 25.6 % (42.0-52.0); HEMOGLOBIN 7.9 g/dL (14.0-18.0); MEAN CORPUSCULAR HEMOGLOBIN 26.4 pg (28.0-32.0); MEAN CORPUSCULAR VOLUME 85.7 fL (80.0-94.0); PLATELET 327 x1000/uL (130-400); RED BLOOD CELL COUNT 2.99 mill/uL (4.7-6.1); RED CELL DISTRIBUTION WIDTH 21.9 % (11.6-14.6)
[2018-05-06] VITALS: BP 128/80
[2018-05-06 04:00] VITALS: BP 130/86
[2018-05-06 07:22] LABS: PLATELET ESTIMATE NORMAL
[2018-05-06 08:00] VITALS: BP 140/93
[2018-05-06] MEDS: SUCRALFATE 1 G/10 ML UDC PO SCH (08:51)
[2018-05-06] MEDS: GABAPENTIN 400MG CAPSULE PO SCH (08:52)
[2018-05-06] MEDS: MULTIVITAMINS,THER W-MINERALS TABLET PO SCH (08:52)
[2018-05-06] MEDS: FOLIC ACID 1MG TABLET PO SCH (08:52)
[2018-05-06] MEDS: ASPIRIN 81MG TABLET PO SCH (08:52)
[2018-05-06] MEDS: PANTOPRAZOLE SODIUM 40 MG/VIAL IV SCH (08:53)
[2018-05-06] MEDS: THIAMINE HCL 100MG TABLET PO SCH (08:53)
[2018-05-06] MEDS: AMLODIPINE 5MG TABLET PO SCH (08:53)
[2018-05-06] MEDS: LOSARTAN POTASSIUM 25 MG TABLET PO SCH (09:00)
[2018-05-06] MEDS: HYDROCODONE/APAP 7.5/325MG 1 TAB TABLET PO PRN (09:03)
[2018-05-06 10:30] VITALS: BP 132/78
[2018-05-13 09:06] LABS: 7-AMINOCLONAZEPAM CONFIRM Negative (.); ALPRAZOLAM CONFIRM Negative (.); BARBITURATE SCREEN Negative ug/mL (Cutoff:0.1); BENZODIAZEPINE SCREEN ++POSITIVE++ ng/mL (Cutoff:20); CHLORDIAZEPOXIDE CONFIRM 2341 ng/mL (.); CLONAZEPAM CONFIRM Negative (.); DESMETHYLCHLORDIAZEPOXIDE 1304 ng/mL (.); DIAZEPAM CONFIRM Negative (.); FLURAZEPAM CONFIRM Negative (.); LORAZEPAM CONFIRM Negative (.); MIDAZOLAM CONFIRM Negative (.); OPIATES SCREEN Negative ng/mL (Cutoff:5); OXAZEPAM CONFIRM Negative (.); PHENCYCLIDINE SCREEN Negative ng/mL (Cutoff:8); TEMAZEPAM CONFIRM Negative (.); TRIAZOLAM CONFIRM Negative (.)
== END 2018-05-06 11:21 | disposition home health service (06) | DRG 812 ==
LOC: ER 12:43 → 7WST 17:15 → EDBEDREQ 17:23 → ENRESERV 22:27
PROVIDERS: ADMIT Internal Medicine; ATTEND Internal Medicine
PROC: 4A00X4Z Measurement of Central Nervous Electrical Activity, External Approach (ICD-10-PCS; principal; 2018-05-03)
DX: T50.901A Poisoning by unspecified drugs, medicaments and biological substances, accidental (unintentional), initial encounter (principal); G92 Toxic encephalopathy; M62.82 Rhabdomyolysis; K22.2 Esophageal obstruction; M87.9 Osteonecrosis, unspecified; D50.9 Iron deficiency anemia, unspecified; F10.20 Alcohol dependence, uncomplicated; D64.9 Anemia, unspecified; Z96.641 Presence of right artificial hip joint; E78.00 Pure hypercholesterolemia, unspecified; I10 Essential (primary) hypertension; M19.90 Unspecified osteoarthritis, unspecified site; R26.9 Unspecified abnormalities of gait and mobility; W18.30XA Fall on same level, unspecified, initial encounter; K44.9 Diaphragmatic hernia without obstruction or gangrene; Y93.89 Activity, other specified; Y92.89 Other specified places as the place of occurrence of the external cause; Y99.8 Other external cause status; Z79.82 Long term (current) use of aspirin; Z79.899 Other long term (current) drug therapy
CPT/HCPCS: 36415; 36600; 70551; 71045; 73522; 80048; 80061; 80076; 80305; 80307; 80320; 82140; 82150; 82270; 82375; 82550; 82553; 82607; 82728; 82746; 82805; 83036; 83540; 83550; 83605; 83880; 84439; 84443; 84481; 84484; 85027; 85044; 93005; 96374; 96375; 99285; C9113; J0696; J1650; J1885; J1956; J2270; J3411; J3490; J7030; J7050; J7060; J7070; G0480

== ENCOUNTER 2018-05-17 15:34 | Inpatient (IN) | payer MEDICAID ==
[~2018-05-17] VITALS: Ht 190.5 cm; Wt 80.7 kg
[~2018-05-17 15:34] MED LIST changes: -AMLO5TAB88 PO; -CLON0.1T14 PO; -LOSA50TA3 PO
[2018-05-17] MEDS ORDERED: ONDANSETRON HCL 4MG/2ML INJ IV STA (16:23)
[2018-05-17] MEDS ORDERED: MORPHINE SULFATE 4 MG/ML CPJ (NOT FOR IM USE) IV STA (16:23)
[2018-05-17] MEDS ORDERED: SODIUM CHLORIDE 0.9% 1,000 ML IV ONE (16:23)
[2018-05-17] MEDS ORDERED: FAMOTIDINE 20MG/2ML VIAL IV ONE (16:30)
[2018-05-17] MEDS ORDERED: ASPIRIN 81MG TABLET PO ONE (16:30)
[2018-05-17] MEDS ORDERED: MAGNESIUM/ALUMINUM HYDROXIDE/SIMETHICONE 30ML UDC PO ONE (16:30)
[2018-05-17 17:15] LABS: CHLORIDE 107 mEq/L (98-107); HEMOGLOBIN. 7.5 g/dL (14.0-18.0); MEAN CORPUSCULAR HEMOGLOBIN 25.2 pg (28.0-32.0); MEAN CORPUSCULAR VOLUME 80.6 fL (80.0-94.0); MEAN PLATELET VOLUME 6.7 fl (7.4-10.4); PLATELET 322 x1000/uL (130-400); RED BLOOD CELL COUNT 2.98 mill/uL (4.7-6.1); RED CELL DISTRIBUTION WIDTH 21.7 % (11.6-14.6)
[2018-05-17 17:16] LABS: PARTIAL THROMBOPLASTIN TIME 24.5 sec (23.4-31.0)
[2018-05-17 17:27] LABS: *AMPHETAMINES SCREEN URINE NEGATIVE (NEGATIVE); *BARBITURATES SCREEN URINE NEGATIVE (NEGATIVE); *BENZODIAZEPINES SCREEN URINE PRESUMTIVE POSITIVE (NEGATIVE); *COCAINE SCREEN URINE NEGATIVE (NEGATIVE)
[2018-05-17 17:28] LABS: CANNABINOID URINE SCREEN NEGATIVE (NEGATIVE); METHADONE URINE SCREEN NEGATIVE (NEGATIVE); OPIATES URINE SCREEN NEGATIVE (NEGATIVE); PHENCYCLIDINE URINE SCREEN NEGATIVE (NEGATIVE)
[2018-05-17 17:34] LABS: ETHANOL BLOOD 302 mg/dL; PLATELET ESTIMATE NORMAL
[2018-05-17] MEDS ORDERED: LORAZEPAM 2MG/ML CPJ IV ONE (18:30)
[2018-05-17] MEDS: HYDROCODONE/ACETAMINOPHEN 5/325MG TABLET PO PRN (21:12)
[2018-05-17] MEDS ORDERED: MORPHINE SULFATE 4 MG/ML CPJ (NOT FOR IM USE) IV PRN (21:45)
[2018-05-17] MEDS ORDERED: ZOLPIDEM TARTRATE 5MG TABLET PO PRN (21:45)
[2018-05-17] MEDS ORDERED: LORAZEPAM 2MG/ML CPJ IV PRN (21:45)
[2018-05-17] MEDS ORDERED: ONDANSETRON HCL 4MG/2ML INJ IV PRN (21:45)
[2018-05-17] MEDS ORDERED: ACETAMINOPHEN 325MG TABLET PO PRN (21:45)
[2018-05-17 22:15] VITALS: BP 137/90
[2018-05-17] MEDS: CHLORDIAZEPOXIDE 25MG CAPSULE PO SCH (23:15)
[2018-05-17] MEDS ORDERED: FOLIC ACID 1 MG, THIAMINE HCL 100 MG, MVI, ADULT NO.1 10 ML in DEXTROSE 5% WATER 1,000 ML IV SCH ×4 (23:30)
[2018-05-18 04:00] VITALS: BP 171/62
[2018-05-18] MEDS: CHLORDIAZEPOXIDE 25MG CAPSULE PO SCH ×3 (05:15→23:42)
[2018-05-18] MEDS: HYDROCODONE/ACETAMINOPHEN 5/325MG TABLET PO PRN ×3 (05:58→23:50)
[2018-05-18 07:15] LABS: CHLORIDE 109 mEq/L (98-107)
[2018-05-18 07:27] LABS: HEMATOCRIT. 22.7 % (42.0-52.0); HEMOGLOBIN. 7.1 g/dL (14.0-18.0); MEAN CORPUSCULAR HEMOGLOBIN 25.7 pg (28.0-32.0); MEAN CORPUSCULAR VOLUME 81.6 fL (80.0-94.0); MEAN PLATELET VOLUME 6.8 fl (7.4-10.4); PLATELET 279 x1000/uL (130-400); RED BLOOD CELL COUNT 2.78 mill/uL (4.7-6.1); RED CELL DISTRIBUTION WIDTH 20.9 % (11.6-14.6)
[2018-05-18 09:00] VITALS: BP 143/85
[2018-05-18] MEDS: FERROUS SULFATE 325MG TABLET PO SCH ×3 (09:55→18:18)
[2018-05-18] MEDS: PANTOPRAZOLE SODIUM 40 MG/VIAL IV SCH (09:55)
[2018-05-18] MEDS: DOCUSATE SODIUM 100MG CAPSULE PO SCH ×2 (09:55→17:00)
[2018-05-18 12:00] VITALS: BP 150/89
[2018-05-18 13:05] LABS: PLATELET ESTIMATE NORMAL
[2018-05-18] MEDS: METOPROLOL TARTRATE 50MG TABLET PO SCH ×2 (13:08→20:02)
[2018-05-18] MEDS: AMLODIPINE 5MG TABLET PO SCH ×2 (13:08→20:01)
[2018-05-18 16:00] VITALS: BP 157/97
[2018-05-18] MEDS: SUCRALFATE 1G TABLET PO SCH ×2 (18:18→20:01)
[2018-05-18 20:00] VITALS: BP 137/82
[2018-05-19] VITALS (7 sets, daily range): BP systolic 112–144; BP diastolic 58–83
[2018-05-19] MEDS ORDERED: FOLIC ACID 1 MG, THIAMINE HCL 100 MG, MVI, ADULT NO.1 10 ML in DEXTROSE 5% WATER 1,000 ML IV SCH ×4
[2018-05-19] MEDS: CHLORDIAZEPOXIDE 25MG CAPSULE PO SCH ×2 (05:26→14:12)
[2018-05-19] MEDS: PANTOPRAZOLE SODIUM 40 MG/VIAL IV SCH (08:37)
[2018-05-19] MEDS: DOCUSATE SODIUM 100MG CAPSULE PO SCH (08:38)
[2018-05-19] MEDS: FERROUS SULFATE 325MG TABLET PO SCH ×2 (08:38→14:16)
[2018-05-19] MEDS: SUCRALFATE 1G TABLET PO SCH ×2 (08:39→14:16)
[2018-05-19] MEDS: HYDROCODONE/ACETAMINOPHEN 5/325MG TABLET PO PRN (08:39)
[2018-05-19] MEDS: AMLODIPINE 5MG TABLET PO SCH (08:40)
[2018-05-19] MEDS: METOPROLOL TARTRATE 50MG TABLET PO SCH (08:40)
[2018-05-19 10:23] LABS: HEMOGLOBIN. 8.2 g/dL (14.0-18.0); MEAN CORPUSCULAR HEMOGLOBIN 24.9 pg (28.0-32.0); MEAN PLATELET VOLUME 7.1 fl (7.4-10.4); PLATELET 279 x1000/uL (130-400); RED BLOOD CELL COUNT 3.29 mill/uL (4.7-6.1)
[2018-05-19 10:34] LABS: CHLORIDE 102 mEq/L (98-107)
[2018-05-20 07:44] LABS: PLATELET ESTIMATE NORMAL
== END 2018-05-19 16:11 | disposition home or self-care (01) | DRG 203 ==
LOC: ER 15:34 → 7WST 20:33 → EDBEDREQ 20:35 → EDBEDREQTM 20:35 → EDBEDREQ 20:36 → ENRESERV 21:31
PROVIDERS: ADMIT Internal Medicine; ATTEND Internal Medicine
DX: M94.0 Chondrocostal junction syndrome [Tietze] (principal); K26.9 Duodenal ulcer, unspecified as acute or chronic, without hemorrhage or perforation; D64.9 Anemia, unspecified; E78.5 Hyperlipidemia, unspecified; F10.129 Alcohol abuse with intoxication, unspecified; F19.10 Other psychoactive substance abuse, uncomplicated; K25.9 Gastric ulcer, unspecified as acute or chronic, without hemorrhage or perforation; I10 Essential (primary) hypertension; Y90.8 Blood alcohol level of 240 mg/100 ml or more; Z96.649 Presence of unspecified artificial hip joint; Z91.19 Patient's noncompliance with other medical treatment and regimen; Z86.73 Personal history of transient ischemic attack (TIA), and cerebral infarction without residual deficits; Z79.899 Other long term (current) drug therapy
CPT/HCPCS: 36415; 71045; 73502; 80048; 80305; 80320; 83880; 84484; 93005; 93306; 96361; 96374; 96375; 99285; C9113; J2060; J2270; J2405; J3411; J3490; J7030; J7070; G0480

== ENCOUNTER 2018-05-24 22:22 | Emergency (ER) | payer MEDICAID ==
[~2018-05-24] VITALS: Ht 188 cm; Wt 82.0 kg
[2018-05-24] MEDS ORDERED: ASPIRIN 325MG TABLET PO ONE (23:45)
[2018-05-25 00:02] LABS: BASOPHILS % 1.3 % (0.0-2.0); EOSINOPHILS % 3.2 % (0.0-5.0); HEMATOCRIT. 26.9 % (42.0-52.0); HEMOGLOBIN. 8.2 g/dL (14.0-18.0); LYMPHOCYTES % 41.7 % (20.0-50.0); MEAN CORPUSCULAR HEMOGLOBIN 25.2 pg (28.0-32.0); MEAN CORPUSCULAR VOLUME 82.5 fL (80.0-94.0); MEAN PLATELET VOLUME 6.7 fl (7.4-10.4); MONOCYTES % 7.6 % (2.0-8.0); NEUTROPHILS % 46.2 % (40.0-76.0); PLATELET 198 x1000/uL (130-400); RED BLOOD CELL COUNT 3.26 mill/uL (4.7-6.1); RED CELL DISTRIBUTION WIDTH 23.9 % (11.6-14.6)
[2018-05-25 00:14] LABS: CHLORIDE 107 mEq/L (98-107)
[2018-05-25] MEDS ORDERED: KETOROLAC 30MG/ML VIAL IV ONE (00:45)
[2018-05-25 03:15] VITALS: BP 135/71
[2018-05-25] MEDS ORDERED: AMLO10TA80 PO (07:33)
== END 2018-05-25 03:30 | disposition home or self-care (01) ==
LOC: ER 22:22
DX: R07.9 Chest pain, unspecified (principal); I10 Essential (primary) hypertension; Z88.8 Allergy status to other drugs, medicaments and biological substances; Z86.73 Personal history of transient ischemic attack (TIA), and cerebral infarction without residual deficits; Z96.649 Presence of unspecified artificial hip joint
CPT/HCPCS: 36415; 71045; 80053; 83880; 84484; 85025; 93005; 96374; 99284; J1885

== ENCOUNTER 2018-08-11 10:00 | Emergency (ER) | payer MEDICAID ==
[~2018-08-11] VITALS: Ht 175.3 cm; Wt 78.0 kg
[~2018-08-11 10:00] MED LIST changes: +AMLO10TA80 PO
[2018-08-11] MEDS ORDERED: ONDANSETRON HCL 4MG/2ML INJ IV STA (10:44)
[2018-08-11] MEDS ORDERED: SODIUM CHLORIDE 0.9% 1,000 ML IV ONE (10:44)
[2018-08-11] MEDS ORDERED: MORPHINE SULFATE 4 MG/ML CPJ (NOT FOR IM USE) IV STA (10:44)
[2018-08-11] MEDS ORDERED: PANTOPRAZOLE SODIUM 40 MG/VIAL IV ONE (11:00)
[2018-08-11 11:29] LABS: HEMATOCRIT. 26.6 % (42.0-52.0); MEAN CORPUSCULAR HEMOGLOBIN 22.6 pg (28.0-32.0); MEAN CORPUSCULAR VOLUME 75.3 fL (80.0-94.0); MEAN PLATELET VOLUME 8.6 fl (7.4-10.4); PLATELET 92 x1000/uL (130-400); RED BLOOD CELL COUNT 3.53 mill/uL (4.7-6.1)
[2018-08-11 11:34] LABS: INR 1.1; PARTIAL THROMBOPLASTIN TIME 26.3 sec (23.4-31.0); PROTHROMBIN TIME 11.2 sec (9.6-11.0)
[2018-08-11 11:35] LABS: CHLORIDE 94 mEq/L (98-107)
[2018-08-11 11:42] LABS: ETHANOL BLOOD 172 mg/dL
[2018-08-11 11:46] LABS: CLARITY URINE CLEAR (CLEAR); COLOR URINE YELLOW (YELLOW); KETONES URINE 1+ (NEGATIVE); LEUKOCYTE ESTERASE URINE NEGATIVE (NEGATIVE); NITRITE URINE NEGATIVE (NEGATIVE); OCCULT BLOOD URINE NEGATIVE (NEGATIVE); PH URINE 5.5 (4.5-8.0); PROTEIN URINE TRACE (NEGATIVE); SPECIFIC GRAVITY URINE 1.009 (1.005-1.030)
[2018-08-11 12:03] LABS: *AMPHETAMINES SCREEN URINE NEGATIVE (NEGATIVE); *BARBITURATES SCREEN URINE NEGATIVE (NEGATIVE); *BENZODIAZEPINES SCREEN URINE NEGATIVE (NEGATIVE); *COCAINE SCREEN URINE NEGATIVE (NEGATIVE); METHADONE URINE SCREEN NEGATIVE (NEGATIVE); OPIATES URINE SCREEN PRESUMTIVE POSITIVE (NEGATIVE)
[2018-08-11 12:04] LABS: CANNABINOID URINE SCREEN NEGATIVE (NEGATIVE); PHENCYCLIDINE URINE SCREEN NEGATIVE (NEGATIVE)
[2018-08-11 12:23] LABS: PLATELET ESTIMATE DECREASED
[2018-08-11 16:00] VITALS: BP 128/70
== END 2018-08-11 16:20 | disposition short-term general hospital (02) ==
LOC: ER 10:00 → CANBEDREQ 21:10
DX: K92.2 Gastrointestinal hemorrhage, unspecified (principal); I10 Essential (primary) hypertension; F10.129 Alcohol abuse with intoxication, unspecified; D61.818 Other pancytopenia; I48.91 Unspecified atrial fibrillation; F15.10 Other stimulant abuse, uncomplicated; E78.00 Pure hypercholesterolemia, unspecified; R07.9 Chest pain, unspecified; Z86.73 Personal history of transient ischemic attack (TIA), and cerebral infarction without residual deficits; Z96.649 Presence of unspecified artificial hip joint; Z88.8 Allergy status to other drugs, medicaments and biological substances; Z79.899 Other long term (current) drug therapy; Z79.82 Long term (current) use of aspirin; Y90.9 Presence of alcohol in blood, level not specified
CPT/HCPCS: 36415; 71045; 80053; 80305; 80320; 81003; 83880; 84484; 85025; 85610; 85730; 86850; 86900; 86901; 93005; 96374; 96375; 99285; C9113; J2270; J2405; J7030; Z7610; G0480

== ENCOUNTER 2018-09-02 19:58 | Emergency (ER) | payer MEDICAID ==
[~2018-09-02] VITALS: Ht 188 cm; Wt 82.0 kg
[2018-09-02] MEDS ORDERED: SODIUM CHLORIDE 0.9% 1,000 ML IV ONE (20:57)
[2018-09-02] MEDS ORDERED: ACETAMINOPHEN 325MG TABLET PO STA (20:57)
[2018-09-02 21:48] LABS: HEMATOCRIT. 29.2 % (42.0-52.0); HEMOGLOBIN. 9.5 g/dL (14.0-18.0); MEAN CORPUSCULAR HEMOGLOBIN 24.6 pg (28.0-32.0); MEAN CORPUSCULAR VOLUME 76.1 fL (80.0-94.0); MEAN PLATELET VOLUME 7.3 fl (7.4-10.4); PLATELET 446 x1000/uL (130-400); RED BLOOD CELL COUNT 3.84 mill/uL (4.7-6.1); RED CELL DISTRIBUTION WIDTH 23.9 % (11.6-14.6)
[2018-09-02 21:49] LABS: CHLORIDE 104 mEq/L (98-107)
[2018-09-02 21:53] LABS: ETHANOL BLOOD 272 mg/dL
[2018-09-02 22:20] LABS: PLATELET ESTIMATE INCREASED
[2018-09-03 11:43] VITALS: BP 141/90
== END 2018-09-03 11:45 | disposition home or self-care (01) ==
LOC: ER 19:58
DX: F10.229 Alcohol dependence with intoxication, unspecified (principal); R55 Syncope and collapse; D50.9 Iron deficiency anemia, unspecified; D72.819 Decreased white blood cell count, unspecified; R07.89 Other chest pain; F15.10 Other stimulant abuse, uncomplicated; F17.200 Nicotine dependence, unspecified, uncomplicated; I10 Essential (primary) hypertension; I48.91 Unspecified atrial fibrillation; E78.00 Pure hypercholesterolemia, unspecified; Z88.8 Allergy status to other drugs, medicaments and biological substances; Z79.82 Long term (current) use of aspirin; Z79.899 Other long term (current) drug therapy; Z96.649 Presence of unspecified artificial hip joint; Y90.9 Presence of alcohol in blood, level not specified
CPT/HCPCS: 36415; 70450; 71045; 72170; 80053; 80320; 83880; 84484; 85025; 93005; 99284; J7030; G0480

== ENCOUNTER 2019-02-03 17:28 | Inpatient (IN) | payer MEDICAID ==
[~2019-02-03] VITALS: Ht 190.5 cm; Wt 81.6 kg
[~2019-02-03 17:28] MED LIST changes: +OMEP40CA12 PO; -OMEP40CA34 PO
[2019-02-03] MEDS ORDERED: CEFTRIAXONE 1 G PREMIX 50 ML IV ONE (18:15)
[2019-02-03] MEDS ORDERED: OCTREOTIDE ACETATE 50 MCG/ML 1ML IV ONE (18:15)
[2019-02-03] MEDS ORDERED: PANTOPRAZOLE 80 MG in SODIUM CHLORIDE 0.9% 80 ML IV ONE (18:15)
[2019-02-03 19:44] LABS: BASOPHILS % 0.8 % (0.0-2.0); CHLORIDE 108 mEq/L (98-107); EOSINOPHILS % 2.8 % (0.0-5.0); HEMATOCRIT. 40.8 % (42.0-52.0); HEMOGLOBIN. 13.2 g/dL (14.0-18.0); LYMPHOCYTES % 45.6 % (20.0-50.0); MEAN CORPUSCULAR HEMOGLOBIN 31.9 pg (28.0-32.0); MEAN CORPUSCULAR VOLUME 98.6 fL (80.0-94.0); MONOCYTES % 4.9 % (2.0-8.0); NEUTROPHILS % 45.9 % (40.0-76.0); PLATELET 238 x1000/uL (130-400); RED BLOOD CELL COUNT 4.14 mill/uL (4.7-6.1); RED CELL DISTRIBUTION WIDTH 19.9 % (11.6-14.6)
[2019-02-03 19:50] LABS: PROTHROMBIN TIME 10.7 sec (9.6-11.0)
[2019-02-03 20:12] LABS: ETHANOL BLOOD 349 mg/dL
[2019-02-03] MEDS ORDERED: ONDANSETRON HCL 4MG/2ML INJ IV PRN (22:00)
[2019-02-03] MEDS ORDERED: ACETAMINOPHEN 325MG TABLET PO PRN (22:00)
[2019-02-03] MEDS ORDERED: FOLIC ACID 1 MG, THIAMINE HCL 100 MG, MVI, ADULT NO.1 10 ML in DEXTROSE 5% WATER 1,000 ML IV NR ×4 (22:30)
[2019-02-04] VITALS: BP 124/75
[2019-02-04] MEDS: LORAZEPAM 2MG/ML CPJ IV PRN ×2 (00:36→20:40)
[2019-02-04 00:42] VITALS: BP 124/75
[2019-02-04 08:21] VITALS: BP 129/74
[2019-02-04] MEDS: PANTOPRAZOLE SODIUM 40 MG/VIAL IV SCH ×2 (09:08→18:23)
[2019-02-04] MEDS: SUCRALFATE 1 G/10 ML UDC PO SCH ×4 (09:09→20:32)
[2019-02-04] MEDS: DEXTROSE 5% WATER 1,000 ML IV SCH ×2 (09:09→21:12)
[2019-02-04 09:27] LABS: CHLORIDE 106 mEq/L (98-107)
[2019-02-04 10:14] LABS: BASOPHILS % 1.6 % (0.0-2.0); HEMATOCRIT. 39.5 % (42.0-52.0); HEMOGLOBIN. 13.3 g/dL (14.0-18.0); LYMPHOCYTES % 35.1 % (20.0-50.0); MEAN CORPUSCULAR HEMOGLOBIN 33.4 pg (28.0-32.0); MEAN PLATELET VOLUME 7.4 fl (7.4-10.4); MONOCYTES % 7.5 % (2.0-8.0); NEUTROPHILS % 54.8 % (40.0-76.0); PLATELET 233 x1000/uL (130-400); RED BLOOD CELL COUNT 3.99 mill/uL (4.7-6.1); RED CELL DISTRIBUTION WIDTH 19.7 % (11.6-14.6)
[2019-02-04 11:56] VITALS: BP 119/70
[2019-02-04] MEDS ORDERED: CHLORDIAZEPOXIDE 25MG CAPSULE PO SCH (14:00)
[2019-02-04] MEDS: CHLORDIAZEPOXIDE 10MG CAPSULE PO SCH ×2 (15:20→21:01)
[2019-02-04] MEDS: CHLORDIAZEPOXIDE 5 MG CAPSULE PO SCH ×2 (15:21→21:01)
[2019-02-04 16:22] VITALS: BP 143/83
[2019-02-04 20:35] VITALS: BP 138/87
[2019-02-04] MEDS ORDERED: FOLIC ACID 1 MG, THIAMINE HCL 100 MG, MVI, ADULT NO.1 10 ML in DEXTROSE 5% WATER 1,000 ML IV SCH ×4 (21:00)
[2019-02-05 00:02] VITALS: BP 145/80
[2019-02-05 04:00] VITALS: BP 149/91
[2019-02-05] MEDS: SUCRALFATE 1 G/10 ML UDC PO SCH ×2 (05:48→15:39)
[2019-02-05] MEDS: CHLORDIAZEPOXIDE 10MG CAPSULE PO SCH ×2 (05:48→15:39)
[2019-02-05] MEDS: CHLORDIAZEPOXIDE 5 MG CAPSULE PO SCH ×2 (05:48→15:39)
[2019-02-05] MEDS: DEXTROSE 5% WATER 1,000 ML IV SCH ×2 (05:49→16:00)
[2019-02-05 06:29] LABS: CHLORIDE 103 mEq/L (98-107)
[2019-02-05 08:00] VITALS: BP 148/90
[2019-02-05] MEDS: PANTOPRAZOLE SODIUM 40 MG/VIAL IV SCH (09:09)
[2019-02-05 09:53] LABS: BASOPHILS % 0.4 % (0.0-2.0); EOSINOPHILS % 2.3 % (0.0-5.0); HEMATOCRIT. 40.8 % (42.0-52.0); HEMOGLOBIN. 13.2 g/dL (14.0-18.0); MONOCYTES % 6.7 % (2.0-8.0); NEUTROPHILS % 68.6 % (40.0-76.0); RED BLOOD CELL COUNT 4.13 mill/uL (4.7-6.1); RED CELL DISTRIBUTION WIDTH 18.7 % (11.6-14.6)
[2019-02-05 09:54] LABS: PLATELET 178 x1000/uL (130-400)
[2019-02-05 12:00] VITALS: BP 145/95
[2019-02-05] MEDS ORDERED: DOCUSATE SODIUM 250MG CAPSULE PO SCH (14:45)
[2019-02-05 14:49] VITALS: BP 145/75
== END 2019-02-05 17:01 | disposition home or self-care (01) | DRG 253 ==
LOC: ER 17:28 → 6WST 20:21 → EDBEDREQ 20:30 → EDBEDREQTM 20:30 → ENRESERV 23:04
PROVIDERS: ADMIT Internal Medicine; ATTEND Internal Medicine
DX: K92.2 Gastrointestinal hemorrhage, unspecified (principal); E87.8 Other disorders of electrolyte and fluid balance, not elsewhere classified; K86.3 Pseudocyst of pancreas; K76.0 Fatty (change of) liver, not elsewhere classified; I48.91 Unspecified atrial fibrillation; R16.0 Hepatomegaly, not elsewhere classified; D53.9 Nutritional anemia, unspecified; R10.13 Epigastric pain; E78.00 Pure hypercholesterolemia, unspecified; E78.5 Hyperlipidemia, unspecified; I10 Essential (primary) hypertension; Z96.641 Presence of right artificial hip joint; Z87.19 Personal history of other diseases of the digestive system; Z86.73 Personal history of transient ischemic attack (TIA), and cerebral infarction without residual deficits; Z79.899 Other long term (current) drug therapy; Z88.8 Allergy status to other drugs, medicaments and biological substances; Z71.41 Alcohol abuse counseling and surveillance of alcoholic
CPT/HCPCS: 36415; 76700; 80048; 80053; 80320; 85025; 86850; 86870; 86900; 93970; 96365; 96368; 96375; 99285; C9113; J0696; J2060; J2354; J2405; J3411; J3490; J7050; J7070; G0480

== ENCOUNTER 2020-06-21 01:48 | Inpatient (IN) | payer MEDICAID ==
[2020-06-21] VITALS (9 sets, daily range): BP systolic 124–148; BP diastolic 79–101
[~2020-06-21] VITALS: Ht 190.5 cm; Wt 74.1 kg
[~2020-06-21 01:48] MED LIST changes: -ASPI-1158 PO; +ASPI-1406 PO
[2020-06-21] MEDS ORDERED: OCTREOTIDE ACETATE 50 MCG/ML 1ML IV STA (03:24)
[2020-06-21] MEDS ORDERED: MORPHINE SULFATE 4 MG/ML CPJ (NOT FOR IM USE) IV STA (03:24)
[2020-06-21] MEDS ORDERED: PANTOPRAZOLE SODIUM 40 MG/VIAL IV STA (03:24)
[2020-06-21] MEDS ORDERED: OCTREOTIDE 1,000 MCG in SODIUM CHLORIDE 0.9% 100 ML IV STA (03:24)
[2020-06-21] MEDS ORDERED: ONDANSETRON HCL 4MG/2ML INJ IV STA (03:24)
[2020-06-21] MEDS ORDERED: SODIUM CHLORIDE 0.9% 1,000 ML IV ONE (03:30)
[2020-06-21] MEDS ORDERED: CEFTRIAXONE 1 G PREMIX 50 ML IV ONE (03:30)
[2020-06-21 03:37] LABS: CHLORIDE 105 mEq/L (98-107)
[2020-06-21 03:40] LABS: HEMATOCRIT. 28.3 % (42.0-52.0); HEMOGLOBIN. 8.5 g/dL (14.0-18.0); MEAN CORPUSCULAR HEMOGLOBIN 28.2 pg (28.0-32.0); MEAN CORPUSCULAR VOLUME 94.4 fL (80.0-94.0); MEAN PLATELET VOLUME 7.7 fl (7.4-10.4); PLATELET 137 x1000/uL (130-400); RED CELL DISTRIBUTION WIDTH 22.8 % (11.6-14.6)
[2020-06-21 04:29] LABS: INR 1.1; PROTHROMBIN TIME 11.4 sec (9.6-11.0)
[2020-06-21 05:19] LABS: PLATELET ESTIMATE NORMAL
[2020-06-21] MEDS ORDERED: LORAZEPAM 0.5MG TABLET PO PRN ×2 (07:45→16:15)
[2020-06-21] MEDS ORDERED: ACETAMINOPHEN 325MG TABLET PO PRN ×2 (07:45)
[2020-06-21] MEDS ORDERED: IPRATROPIUM/ALBUTEROL 0.5-3(2.5)MG/3ML NEB HHN PRN (07:45)
[2020-06-21] MEDS ORDERED: HYDROCODONE/ACETAMINOPHEN 5/325MG TABLET PO PRN (07:45)
[2020-06-21] MEDS ORDERED: GUAIFENESIN 200MG/10ML SUGAR FREE UDC PO PRN (07:45)
[2020-06-21] MEDS ORDERED: ONDANSETRON HCL 4MG/2ML INJ IV PRN (07:45)
[2020-06-21] MEDS ORDERED: SODIUM CHLORIDE 0.9% 1,000 ML IV SCH (07:45)
[2020-06-21] MEDS: HYDROMORPHONE HCL/PF 2MG/ML CPJ IV PRN ×4 (09:29→23:46)
[2020-06-21] MEDS ORDERED: AMLO10TA4 MT (09:58)
[2020-06-21] MEDS ORDERED: AMLO10TA4 PO (10:00)
[2020-06-21] MEDS ORDERED: GABA800T97 MT ×2 (10:00→15:58)
[2020-06-21] MEDS ORDERED: *PATIENT'S OWN MEDICATION STORAGE XX SCH (10:00)
[2020-06-21] MEDS ORDERED: FAMO-135 PO (10:00)
[2020-06-21] MEDS ORDERED: LOSA100T32 MT (10:00)
[2020-06-21 12:42] LABS: *COCAINE SCREEN URINE NEGATIVE (NEGATIVE); METHADONE URINE SCREEN NEGATIVE (NEGATIVE); OPIATES URINE SCREEN PRESUMTIVE POSITIVE (NEGATIVE); PHENCYCLIDINE URINE SCREEN NEGATIVE (NEGATIVE)
[2020-06-21 12:44] LABS: *AMPHETAMINES SCREEN URINE NEGATIVE (NEGATIVE); *BARBITURATES SCREEN URINE NEGATIVE (NEGATIVE); *BENZODIAZEPINES SCREEN URINE NEGATIVE (NEGATIVE); CANNABINOID URINE SCREEN NEGATIVE (NEGATIVE)
[2020-06-21] MEDS: OCTREOTIDE 1,000 MCG in SODIUM CHLORIDE 0.9% 98 ML IV SCH (13:19)
[2020-06-21 13:22] LABS: TOTAL IRON BINDING CAPACITY 344 ug/dL (250-450)
[2020-06-21 13:47] LABS: HEPATITIS B SURFACE ANTIGEN NEGATIVE
[2020-06-21 14:17] LABS: HEPATITIS A AB IGM NEGATIVE (NEGATIVE)
[2020-06-21 14:49] LABS: FOLIC ACID (FOLATE) SERUM 12.5 ng/mL (>5.38)
[2020-06-21] MEDS ORDERED: CEFTRIAXONE 1 G PREMIX 50 ML IV SCH (15:30)
[2020-06-21] MEDS: AMLODIPINE 10MG TABLET PO SCH (16:25)
[2020-06-21] MEDS: CHLORDIAZEPOXIDE 25MG CAPSULE PO SCH (16:25)
[2020-06-21] MEDS: SODIUM CHLORIDE 0.9% 1,000 ML IV SCH (16:42)
[2020-06-21] MEDS: PANTOPRAZOLE SODIUM 40 MG/VIAL IV SCH (20:46)
[2020-06-21] MEDS ORDERED: LOSARTAN POTASSIUM 25 MG TABLET PO SCH (21:00)
[2020-06-21] MEDS: GABAPENTIN 400MG CAPSULE PO SCH (21:37)
[2020-06-22] VITALS (18 sets, daily range): BP systolic 101–153; BP diastolic 72–96
[2020-06-22] MEDS: CEFTRIAXONE 1,000 MG in DEXTROSE 5% WATER 50 ML IV SCH (03:37)
[2020-06-22] MEDS: SODIUM CHLORIDE 0.9% 1,000 ML IV SCH ×2 (04:26→16:12)
[2020-06-22] MEDS: GABAPENTIN 400MG CAPSULE PO SCH ×3 (05:53→21:31)
[2020-06-22 07:23] LABS: CHLORIDE 113 mEq/L (98-107)
[2020-06-22 07:34] LABS: AMYLASE 348 IU/L (25-115)
[2020-06-22 07:39] LABS: LDL CHOLESTEROL 55 mg/dL (5-100)
[2020-06-22 07:40] LABS: HDL CHOLESTEROL 58 mg/dL (40-59)
[2020-06-22] MEDS: HYDROMORPHONE HCL/PF 2MG/ML CPJ IV PRN ×2 (07:46→19:54)
[2020-06-22 08:15] LABS: BASOPHILS % 0.1 % (0.0-2.0); LYMPHOCYTES % 10.1 % (20.0-50.0); MEAN CORPUSCULAR HEMOGLOBIN 29.1 pg (28.0-32.0); MEAN CORPUSCULAR VOLUME 91.6 fL (80.0-94.0); MEAN PLATELET VOLUME 8.5 fl (7.4-10.4); MONOCYTES % 9.5 % (2.0-8.0); NEUTROPHILS % 80.3 % (40.0-76.0); PLATELET 102 x1000/uL (130-400); RED CELL DISTRIBUTION WIDTH 22.7 % (11.6-14.6)
[2020-06-22] MEDS: PANTOPRAZOLE SODIUM 40 MG/VIAL IV SCH ×2 (08:39→21:31)
[2020-06-22] MEDS: OCTREOTIDE 1,000 MCG in SODIUM CHLORIDE 0.9% 98 ML IV SCH (08:39)
[2020-06-22] MEDS: AMLODIPINE 10MG TABLET PO SCH (10:02)
[2020-06-22] MEDS: CHLORDIAZEPOXIDE 25MG CAPSULE PO SCH ×2 (10:02→17:00)
[2020-06-22] MEDS ORDERED: SODIUM POLYSTYRENE SULFONATE 15 G/60 ML BOT PO SCH (11:00)
[2020-06-22] MEDS ORDERED: MAGNESIUM 2 G PREMIX 50 ML IV SCH (16:00)
[2020-06-22] MEDS ORDERED: PROPOFOL 200MG/20ML VIAL IV ONE (16:58)
[2020-06-22] MEDS ORDERED: LIDOCAINE HCL/PF 1% 10 MG/ML 5ML VIAL ONE ×2 (16:58→17:09)
[2020-06-22] MEDS ORDERED: LABETALOL 5MG/ML SYR 20 MG/4 ML SYRINGE IV PRN (17:15)
[2020-06-22] MEDS ORDERED: HYDROMORPHONE HCL/PF 2MG/ML CPJ IV PRN (17:15)
[2020-06-22] MEDS ORDERED: ONDANSETRON HCL 4MG/2ML INJ IV PRN (17:15)
[2020-06-22] MEDS ORDERED: MEPERIDINE HCL/PF 25MG/ML CPJ IV PRN (17:15)
[2020-06-22 19:44] LABS: HEMATOCRIT 24.1 % (42.0-52.0)
[2020-06-22] MEDS ORDERED: SORBITOL 70% SOLN 30ML PO SCH (22:00)
[2020-06-23] VITALS (11 sets, daily range): BP systolic 124–157; BP diastolic 65–87
[2020-06-23] MEDS: HYDROMORPHONE HCL/PF 2MG/ML CPJ IV PRN ×5 (01:08→20:11)
[2020-06-23] MEDS: CEFTRIAXONE 1,000 MG in DEXTROSE 5% WATER 50 ML IV SCH (03:49)
[2020-06-23] MEDS: SODIUM CHLORIDE 0.9% 1,000 ML IV SCH (03:51)
[2020-06-23] MEDS: OCTREOTIDE 1,000 MCG in SODIUM CHLORIDE 0.9% 98 ML IV SCH ×2 (05:08→23:59)
[2020-06-23] MEDS: GABAPENTIN 400MG CAPSULE PO SCH ×3 (05:53→21:38)
[2020-06-23 06:42] LABS: BASOPHILS % 0.2 % (0.0-2.0); EOSINOPHILS % 0.2 % (0.0-5.0); HEMATOCRIT. 22.6 % (42.0-52.0); HEMOGLOBIN. 7.4 g/dL (14.0-18.0); LYMPHOCYTES % 14.2 % (20.0-50.0); MEAN CORPUSCULAR HEMOGLOBIN 29.7 pg (28.0-32.0); MEAN CORPUSCULAR VOLUME 91.1 fL (80.0-94.0); MEAN PLATELET VOLUME 8.6 fl (7.4-10.4); MONOCYTES % 4.4 % (2.0-8.0); PLATELET 94 x1000/uL (130-400); RED BLOOD CELL COUNT 2.48 mill/uL (4.7-6.1); RED CELL DISTRIBUTION WIDTH 19.9 % (11.6-14.6)
[2020-06-23 06:44] LABS: CHLORIDE 114 mEq/L (98-107)
[2020-06-23 06:52] LABS: AMYLASE 108 IU/L (25-115)
[2020-06-23 06:58] LABS: T4 FREE 0.75 ng/dL (0.76-1.46)
[2020-06-23] MEDS: PANTOPRAZOLE SODIUM 40 MG/VIAL IV SCH ×2 (08:28→20:10)
[2020-06-23] MEDS: CHLORDIAZEPOXIDE 25MG CAPSULE PO SCH ×2 (08:28→18:37)
[2020-06-23] MEDS: AMLODIPINE 10MG TABLET PO SCH (08:28)
[2020-06-23] MEDS ORDERED: SORBITOL 70% SOLN 30ML PO SCH (10:00)
[2020-06-23] MEDS: SODIUM CHLORIDE 0.45% 1,000 ML IV SCH (10:44)
[2020-06-23] MEDS ORDERED: NA PHOS,M-B/NA PHOS,DI-BA ENEMA 118ML PR SCH (12:00)
[2020-06-23] MEDS ORDERED: SORBITOL 70% SOLN 30ML PO ONE (13:30)
[2020-06-23] MEDS ORDERED: PROPOFOL 200MG/20ML VIAL IV ONE (17:08)
[2020-06-23] MEDS ORDERED: ONDANSETRON HCL 4MG/2ML INJ IV PRN (17:30)
[2020-06-23] MEDS ORDERED: HYDROMORPHONE HCL/PF 2MG/ML CPJ IV PRN (17:30)
[2020-06-23] MEDS ORDERED: LABETALOL 5MG/ML SYR 20 MG/4 ML SYRINGE IV PRN (17:30)
[2020-06-23] MEDS ORDERED: MEPERIDINE HCL/PF 25MG/ML CPJ IV PRN (17:30)
[2020-06-24] VITALS (8 sets, daily range): BP systolic 109–138; BP diastolic 78–89
[2020-06-24] MEDS: HYDROMORPHONE HCL/PF 2MG/ML CPJ IV PRN ×3 (00:03→11:25)
[2020-06-24] MEDS: CEFTRIAXONE 1,000 MG in DEXTROSE 5% WATER 50 ML IV SCH (03:09)
[2020-06-24] MEDS: SODIUM CHLORIDE 0.45% 1,000 ML IV SCH (03:09)
[2020-06-24] MEDS: GABAPENTIN 400MG CAPSULE PO SCH ×2 (05:14→13:36)
[2020-06-24 07:09] LABS: BASOPHILS % 0.4 % (0.0-2.0); EOSINOPHILS % 2.3 % (0.0-5.0); HEMATOCRIT. 24.4 % (42.0-52.0); HEMOGLOBIN. 7.9 g/dL (14.0-18.0); MEAN CORPUSCULAR HEMOGLOBIN 29.5 pg (28.0-32.0); MEAN CORPUSCULAR VOLUME 90.5 fL (80.0-94.0); MEAN PLATELET VOLUME 7.9 fl (7.4-10.4); MONOCYTES % 4.4 % (2.0-8.0); NEUTROPHILS % 68.9 % (40.0-76.0); PLATELET 111 x1000/uL (130-400); RED BLOOD CELL COUNT 2.69 mill/uL (4.7-6.1); RED CELL DISTRIBUTION WIDTH 20.4 % (11.6-14.6)
[2020-06-24 07:34] LABS: CHLORIDE 104 mEq/L (98-107)
[2020-06-24 07:46] LABS: AMYLASE 53 IU/L (25-115)
[2020-06-24] MEDS: PANTOPRAZOLE SODIUM 40 MG/VIAL IV SCH (08:08)
[2020-06-24] MEDS: CHLORDIAZEPOXIDE 25MG CAPSULE PO SCH ×2 (08:08→16:51)
[2020-06-24] MEDS: AMLODIPINE 10MG TABLET PO SCH (08:09)
[2020-06-24] MEDS ORDERED: POTASSIUM CHLORIDE INJ 40 MEQ in DEXT 5% WATER 250 ML IV ONE (11:30)
[2020-06-24] MEDS ORDERED: OMEP40CA12 PO (14:10)
[2020-06-24] MEDS ORDERED: HYDR-4001 MT (14:10)
== END 2020-06-24 17:38 | disposition home or self-care (01) | DRG 241 ==
LOC: ER 01:48 → 3WST 04:43 → ENRESERV 08:04
PROVIDERS: ADMIT Internal Medicine; ATTEND Internal Medicine
PROC: 30233N1 Transfusion of Nonautologous Red Blood Cells into Peripheral Vein, Percutaneous Approach (ICD-10-PCS; principal; 2020-06-22)
PROC: 0DB78ZX Excision of Stomach, Pylorus, Via Natural or Artificial Opening Endoscopic, Diagnostic (ICD-10-PCS; 2020-06-22)
PROC: 0DJD8ZZ Inspection of Lower Intestinal Tract, Via Natural or Artificial Opening Endoscopic (ICD-10-PCS; 2020-06-23)
DX: K29.71 Gastritis, unspecified, with bleeding (principal); K85.20 Alcohol induced acute pancreatitis without necrosis or infection; N17.9 Acute kidney failure, unspecified; R65.10 Systemic inflammatory response syndrome (SIRS) of non-infectious origin without acute organ dysfunction; E87.5 Hyperkalemia; E83.42 Hypomagnesemia; K70.30 Alcoholic cirrhosis of liver without ascites; K86.0 Alcohol-induced chronic pancreatitis; D50.0 Iron deficiency anemia secondary to blood loss (chronic); D53.9 Nutritional anemia, unspecified; F10.20 Alcohol dependence, uncomplicated; I10 Essential (primary) hypertension; K76.0 Fatty (change of) liver, not elsewhere classified; D72.810 Lymphocytopenia; E78.00 Pure hypercholesterolemia, unspecified; K21.9 Gastro-esophageal reflux disease without esophagitis; E05.90 Thyrotoxicosis, unspecified without thyrotoxic crisis or storm; K64.8 Other hemorrhoids; Z20.822 Contact with and (suspected) exposure to COVID-19; K80.20 Calculus of gallbladder without cholecystitis without obstruction; M13.852 Other specified arthritis, left hip; N20.0 Calculus of kidney; Z96.641 Presence of right artificial hip joint; Z87.19 Personal history of other diseases of the digestive system; Z88.8 Allergy status to other drugs, medicaments and biological substances; Z79.82 Long term (current) use of aspirin; Z79.899 Other long term (current) drug therapy; Z71.41 Alcohol abuse counseling and surveillance of alcoholic
CPT/HCPCS: 36415; 71045; 74176; 76700; 80048; 80053; 80061; 80305; 82140; 82150; 82607; 82728; 82746; 83036; 83540; 83550; 83735; 84100; 84132; 84439; 84443; 84481; 85014; 85018; 85025; 86705; 86709; 86803; 86850; 86900; 86920; 87340; 87426; 88305; 88312; 88313; 93005; 99291; C9113; J0696; J1170; J2270; J2354; J2405; J2704; J3475; J3480; J3490; J7030; J7050; J7060; P9016

== ENCOUNTER 2020-09-18 13:20 | Inpatient (IN) | payer MEDICAID ==
[~2020-09-18] VITALS: Ht 190.5 cm; Wt 74.1 kg
[~2020-09-18 13:20] MED LIST changes: -ASPI-1406 PO; +FAMO-135 PO; +HYDR-4001 MT
[2020-09-18] MEDS ORDERED: SODIUM CHLORIDE 0.9% 1,000 ML IV ONE ×2 (14:45→22:00)
[2020-09-18] MEDS ORDERED: ONDANSETRON HCL 4MG/2ML INJ IV ONE ×2 (14:45→22:00)
[2020-09-18 14:50] LABS: BASOPHILS % 0.6 % (0.0-2.0); HEMATOCRIT. 33.1 % (42.0-52.0); HEMOGLOBIN. 10.1 g/dL (14.0-18.0); LYMPHOCYTES % 10.6 % (20.0-50.0); MEAN CORPUSCULAR HEMOGLOBIN 28.3 pg (28.0-32.0); MEAN CORPUSCULAR VOLUME 92.7 fL (80.0-94.0); MEAN PLATELET VOLUME 8.7 fl (7.4-10.4); MONOCYTES % 3.8 % (2.0-8.0); PLATELET 75 x1000/uL (130-400); RED BLOOD CELL COUNT 3.57 mill/uL (4.7-6.1); RED CELL DISTRIBUTION WIDTH 26.2 % (11.6-14.6)
[2020-09-18 14:54] LABS: CHLORIDE 104 mEq/L (98-107)
[2020-09-18 14:55] LABS: PROTHROMBIN TIME 10.9 sec (9.6-11.0)
[2020-09-18 14:59] LABS: ETHANOL BLOOD < 10 mg/dL
[2020-09-18] MEDS ORDERED: MORPHINE SULFATE 4 MG/ML CPJ (NOT FOR IM USE) IV ONE ×2 (16:15→21:00)
[2020-09-18 16:31] LABS: PLATELET ESTIMATE DECREASED
[2020-09-18] MEDS ORDERED: PIPERACILLIN/TAZOBACTAM 3.375GM/50ML PREMIX IV ONE (18:00)
[2020-09-18] MEDS ORDERED: PIPERACILLIN/TAZ 3.375G PREMIX 50 ML IV NR (18:00)
[2020-09-18 22:35] LABS: CLARITY URINE CLEAR (CLEAR); COLOR URINE YELLOW (YELLOW); KETONES URINE 1+ (NEGATIVE); LEUKOCYTE ESTERASE URINE NEGATIVE (NEGATIVE); NITRITE URINE NEGATIVE (NEGATIVE); OCCULT BLOOD URINE NEGATIVE (NEGATIVE); PH URINE 5.5 (4.5-8.0); PROTEIN URINE 2+ (NEGATIVE); SPECIFIC GRAVITY URINE 1.018 (1.005-1.030); UROBILINOGEN URINE 0.2 E.U./dL (0.2-1.0)
[2020-09-19] VITALS (10 sets, daily range): BP systolic 129–159; BP diastolic 81–94
[2020-09-19] MEDS ORDERED: ONDANSETRON HCL 4MG/2ML INJ IV NR (02:00)
[2020-09-19] MEDS ORDERED: MORPHINE SULFATE 4 MG/ML CPJ (NOT FOR IM USE) IV NR (02:00)
[2020-09-19] MEDS ORDERED: DEXTROSE 50% WATER 50ML SYRINGE IV PRN (05:00)
[2020-09-19] MEDS: ONDANSETRON HCL 4MG/2ML INJ IV PRN ×3 (05:54→20:36)
[2020-09-19] MEDS: MORPHINE SULFATE 2 MG/ML CPJ (NOT FOR IM USE) IV PRN ×3 (05:55→20:36)
[2020-09-19] MEDS ORDERED: BLOOD SUGAR DIAGNOSTIC STRIP TEST SCH ×2 (06:00→16:50)
[2020-09-19] MEDS ORDERED: INSULIN LISPRO 100 UNITS/ML SUBCUT SCH (07:20)
[2020-09-19] MEDS: FOLIC ACID 1 MG, THIAMINE HCL 100 MG, MVI, ADULT NO.1 10 ML in DEXTROSE 5% WATER 1,000 ML IV SCH (08:33)
[2020-09-19] MEDS: PANTOPRAZOLE SODIUM 40 MG/VIAL IV SCH (08:33)
[2020-09-19] MEDS: PIPERACILLIN/TAZOBACTAM 3.375 G in DEXTROSE 5% WATER 50 ML IV SCH ×2 (12:57→17:56)
[2020-09-19] MEDS: DEXT 5%/0.45% NACL KCL 20MEQ/L 1,000 ML IV SCH ×2 (13:00→17:19)
[2020-09-19 14:34] LABS: BASOPHILS % 0.2 % (0.0-2.0); EOSINOPHILS % 0.1 % (0.0-5.0); HEMATOCRIT. 27.1 % (42.0-52.0); HEMOGLOBIN. 8.4 g/dL (14.0-18.0); LYMPHOCYTES % 13.9 % (20.0-50.0); MEAN CORPUSCULAR HEMOGLOBIN 28.5 pg (28.0-32.0); MEAN CORPUSCULAR VOLUME 91.3 fL (80.0-94.0); MEAN PLATELET VOLUME 8.3 fl (7.4-10.4); MONOCYTES % 6.2 % (2.0-8.0); NEUTROPHILS % 79.6 % (40.0-76.0); PLATELET 63 x1000/uL (130-400); RED BLOOD CELL COUNT 2.97 mill/uL (4.7-6.1); RED CELL DISTRIBUTION WIDTH 25.9 % (11.6-14.6)
[2020-09-19 15:00] LABS: CHLORIDE 107 mEq/L (98-107)
[2020-09-19] MEDS ORDERED: NALOXONE HCL 0.4MG/ML VIAL IV PRN (15:15)
[2020-09-19] MEDS: LORAZEPAM 2MG/ML CPJ IV PRN (21:44)
[2020-09-20] VITALS (16 sets, daily range): BP systolic 129–160; BP diastolic 78–102
[2020-09-20] MEDS: PIPERACILLIN/TAZOBACTAM 3.375 G in DEXTROSE 5% WATER 50 ML IV SCH ×4 (00:16→18:58)
[2020-09-20] MEDS: DEXT 5%/0.45% NACL KCL 20MEQ/L 1,000 ML IV SCH ×4 (04:42→21:00)
[2020-09-20 06:50] LABS: BASOPHILS % 0.2 % (0.0-2.0); EOSINOPHILS % 0.1 % (0.0-5.0); HEMATOCRIT. 21.9 % (42.0-52.0); HEMOGLOBIN. 7.1 g/dL (14.0-18.0); LYMPHOCYTES % 16.3 % (20.0-50.0); MEAN CORPUSCULAR HEMOGLOBIN 29.4 pg (28.0-32.0); MEAN CORPUSCULAR VOLUME 89.8 fL (80.0-94.0); MEAN PLATELET VOLUME 8.4 fl (7.4-10.4); MONOCYTES % 10.4 % (2.0-8.0); PLATELET 52 x1000/uL (130-400); RED BLOOD CELL COUNT 2.43 mill/uL (4.7-6.1); RED CELL DISTRIBUTION WIDTH 25.7 % (11.6-14.6)
[2020-09-20 08:03] LABS: CHLORIDE 103 mEq/L (98-107)
[2020-09-20] MEDS: PANTOPRAZOLE SODIUM 40 MG/VIAL IV SCH (08:24)
[2020-09-20] MEDS: FOLIC ACID 1 MG, THIAMINE HCL 100 MG, MVI, ADULT NO.1 10 ML in DEXTROSE 5% WATER 1,000 ML IV SCH (08:25)
[2020-09-20] MEDS: ONDANSETRON HCL 4MG/2ML INJ IV PRN (08:25)
[2020-09-20] MEDS: MORPHINE SULFATE 2 MG/ML CPJ (NOT FOR IM USE) IV PRN ×3 (08:25→22:31)
[2020-09-20] MEDS ORDERED: METOPROLOL TARTRATE 5MG/5ML VIAL IV PRN (12:45)
[2020-09-20] MEDS: LORAZEPAM 2MG/ML CPJ IV PRN (14:15)
[2020-09-20 16:18] LABS: HEMATOCRIT 23.1 % (42.0-52.0); HEMOGLOBIN 7.7 g/dL (14.0-18.0)
[2020-09-21] VITALS (10 sets, daily range): BP systolic 139–157; BP diastolic 77–97
[2020-09-21] MEDS: PIPERACILLIN/TAZOBACTAM 3.375 G in DEXTROSE 5% WATER 50 ML IV SCH ×4 (00:18→17:34)
[2020-09-21 00:37] LABS: HEMATOCRIT 26.5 % (42.0-52.0)
[2020-09-21] MEDS: DEXT 5%/0.45% NACL KCL 20MEQ/L 1,000 ML IV SCH ×3 (04:05→21:00)
[2020-09-21] MEDS: MORPHINE SULFATE 2 MG/ML CPJ (NOT FOR IM USE) IV PRN ×3 (04:26→22:32)
[2020-09-21 06:47] LABS: BASOPHILS % 0.3 % (0.0-2.0); EOSINOPHILS % 0.7 % (0.0-5.0); HEMATOCRIT. 28.1 % (42.0-52.0); HEMOGLOBIN. 9.1 g/dL (14.0-18.0); LYMPHOCYTES % 16.7 % (20.0-50.0); MEAN CORPUSCULAR HEMOGLOBIN 28.8 pg (28.0-32.0); MEAN PLATELET VOLUME 8.6 fl (7.4-10.4); MONOCYTES % 11.9 % (2.0-8.0); NEUTROPHILS % 70.4 % (40.0-76.0); PLATELET 67 x1000/uL (130-400); RED BLOOD CELL COUNT 3.16 mill/uL (4.7-6.1)
[2020-09-21 07:12] LABS: CHLORIDE 99 mEq/L (98-107)
[2020-09-21 07:21] LABS: AMYLASE 63 IU/L (25-115)
[2020-09-21] MEDS: PANTOPRAZOLE SODIUM 40 MG/VIAL IV SCH (08:48)
[2020-09-21] MEDS: ONDANSETRON HCL 4MG/2ML INJ IV PRN ×2 (10:57→17:34)
[2020-09-21] MEDS: FOLIC ACID 1 MG, THIAMINE HCL 100 MG, MVI, ADULT NO.1 10 ML in DEXTROSE 5% WATER 1,000 ML IV SCH (12:16)
[2020-09-21 21:52] LABS: HEMATOCRIT 26.5 % (42.0-52.0)
[2020-09-22] VITALS (11 sets, daily range): BP systolic 132–160; BP diastolic 83–98
[2020-09-22] MEDS: PIPERACILLIN/TAZOBACTAM 3.375 G in DEXTROSE 5% WATER 50 ML IV SCH ×5 (00:04→23:46)
[2020-09-22 01:40] LABS: HEMATOCRIT 25.5 % (42.0-52.0); HEMOGLOBIN 8.7 g/dL (14.0-18.0)
[2020-09-22] MEDS: LORAZEPAM 2MG/ML CPJ IV PRN ×2 (01:47→21:33)
[2020-09-22] MEDS: DEXT 5%/0.45% NACL KCL 20MEQ/L 1,000 ML IV SCH ×2 (05:00→20:05)
[2020-09-22] MEDS: MORPHINE SULFATE 2 MG/ML CPJ (NOT FOR IM USE) IV PRN ×3 (06:09→17:55)
[2020-09-22] MEDS: ONDANSETRON HCL 4MG/2ML INJ IV PRN ×2 (06:18→13:02)
[2020-09-22 07:15] LABS: BASOPHILS % 0.1 % (0.0-2.0); EOSINOPHILS % 1.5 % (0.0-5.0); HEMATOCRIT. 28.4 % (42.0-52.0); HEMOGLOBIN. 9.4 g/dL (14.0-18.0); LYMPHOCYTES % 17.9 % (20.0-50.0); MEAN CORPUSCULAR HEMOGLOBIN 29.5 pg (28.0-32.0); MEAN CORPUSCULAR VOLUME 89.5 fL (80.0-94.0); MONOCYTES % 13.1 % (2.0-8.0); NEUTROPHILS % 67.4 % (40.0-76.0); PLATELET 105 x1000/uL (130-400); RED BLOOD CELL COUNT 3.17 mill/uL (4.7-6.1); RED CELL DISTRIBUTION WIDTH 23.7 % (11.6-14.6)
[2020-09-22 07:41] LABS: CHLORIDE 99 mEq/L (98-107)
[2020-09-22 07:49] LABS: AMYLASE 62 IU/L (25-115)
[2020-09-22] MEDS: PANTOPRAZOLE SODIUM 40 MG/VIAL IV SCH (08:28)
[2020-09-22] MEDS: FOLIC ACID 1 MG, THIAMINE HCL 100 MG, MVI, ADULT NO.1 10 ML in DEXTROSE 5% WATER 1,000 ML IV SCH (08:28)
[2020-09-22] MEDS ORDERED: POTASSIUM CHLORIDE 20MEQ TABLET SR PO NR (10:30)
[2020-09-22 13:39] LABS: HEMATOCRIT 30.8 % (42.0-52.0); HEMOGLOBIN 10.2 g/dL (14.0-18.0)
[2020-09-23] VITALS (8 sets, daily range): BP systolic 97–163; BP diastolic 56–100
[2020-09-23] MEDS: MORPHINE SULFATE 2 MG/ML CPJ (NOT FOR IM USE) IV PRN ×2 (02:05→08:10)
[2020-09-23] MEDS: ONDANSETRON HCL 4MG/2ML INJ IV PRN ×2 (02:05→08:10)
[2020-09-23] MEDS: DEXT 5%/0.45% NACL KCL 20MEQ/L 1,000 ML IV SCH (05:00)
[2020-09-23] MEDS: FOLIC ACID 1 MG, THIAMINE HCL 100 MG, MVI, ADULT NO.1 10 ML in DEXTROSE 5% WATER 1,000 ML IV SCH (06:40)
[2020-09-23] MEDS: PIPERACILLIN/TAZOBACTAM 3.375 G in DEXTROSE 5% WATER 50 ML IV SCH (06:40)
[2020-09-23 07:41] LABS: HEMATOCRIT. 26.8 % (42.0-52.0); HEMOGLOBIN. 9.1 g/dL (14.0-18.0); MEAN CORPUSCULAR HEMOGLOBIN 29.7 pg (28.0-32.0); MEAN CORPUSCULAR VOLUME 88.1 fL (80.0-94.0); MEAN PLATELET VOLUME 7.8 fl (7.4-10.4); PLATELET 139 x1000/uL (130-400); RED BLOOD CELL COUNT 3.05 mill/uL (4.7-6.1); RED CELL DISTRIBUTION WIDTH 23.2 % (11.6-14.6)
[2020-09-23] MEDS: PANTOPRAZOLE SODIUM 40 MG/VIAL IV SCH (08:10)
[2020-09-23 08:13] LABS: CHLORIDE 101 mEq/L (98-107)
[2020-09-23 09:59] LABS: PLATELET ESTIMATE NORMAL
[2020-09-23] MEDS ORDERED: POTASSIUM CHLORIDE 20MEQ TABLET SR PO NR ×2 (11:00→13:00)
== END 2020-09-23 12:20 | disposition home or self-care (01) | DRG 282 ==
LOC: ER 13:27 → MICUSO 21:49 → 3WST 09-19 02:06
PROVIDERS: ADMIT Internal Medicine; ATTEND Internal Medicine
PROC: 30233N1 Transfusion of Nonautologous Red Blood Cells into Peripheral Vein, Percutaneous Approach (ICD-10-PCS; principal; 2020-09-20)
DX: K85.20 Alcohol induced acute pancreatitis without necrosis or infection (principal); J69.0 Pneumonitis due to inhalation of food and vomit; D69.6 Thrombocytopenia, unspecified; K76.0 Fatty (change of) liver, not elsewhere classified; K92.2 Gastrointestinal hemorrhage, unspecified; K86.0 Alcohol-induced chronic pancreatitis; D64.9 Anemia, unspecified; I10 Essential (primary) hypertension; K80.20 Calculus of gallbladder without cholecystitis without obstruction; N20.0 Calculus of kidney; F10.10 Alcohol abuse, uncomplicated; Z20.822 Contact with and (suspected) exposure to COVID-19; E87.6 Hypokalemia; Z88.8 Allergy status to other drugs, medicaments and biological substances; Z79.899 Other long term (current) drug therapy
CPT/HCPCS: 36415; 71045; 74176; 78278; 80048; 80053; 80076; 80320; 81003; 82150; 82270; 82962; 85014; 85018; 85025; 86850; 86900; 86920; 87015; 87045; 87426; 87427; 87449; 89055; 93005; 99285; A9560; C9113; J2060; J2270; J2405; J2543; J3411; J3490; J7030; J7060; J7070; P9016; G0480

== ENCOUNTER 2022-01-05 11:43 | Emergency (ER) | payer MEDICAID ==
[~2022-01-05] VITALS: Ht 185.4 cm; Wt 78.0 kg
[~2022-01-05 11:43] MED LIST changes: -FAMO-135 PO; -OMEP40CA12 PO; +OMEP40CA20 PO
[2022-01-05] MEDS ORDERED: MORPHINE SULFATE 4 MG/ML CPJ (NOT FOR IM USE) IV ONE (12:30)
[2022-01-05] MEDS ORDERED: ASPIRIN 325MG TABLET PO ONE (12:30)
[2022-01-05 12:43] LABS: BASOPHILS % 0.5 % (0.0-2.0); EOSINOPHILS % 0.8 % (0.0-5.0); HEMATOCRIT. 37.4 % (42.0-52.0); HEMOGLOBIN. 12.3 g/dL (14.0-18.0); LYMPHOCYTES % 38.3 % (20.0-50.0); MEAN CORPUSCULAR HEMOGLOBIN 31.7 pg (28.0-32.0); MEAN CORPUSCULAR VOLUME 95.9 fL (80.0-94.0); MONOCYTES % 6.7 % (2.0-8.0); NEUTROPHILS % 53.7 % (40.0-76.0); PLATELET 88 x1000/uL (130-400); RED CELL DISTRIBUTION WIDTH 17.4 % (11.6-14.6)
[2022-01-05 12:53] LABS: CHLORIDE 101 mEq/L (98-107)
[2022-01-05] MEDS ORDERED: KCL 10MEQ/50ML PREMIX 50 ML IV ONE (13:45)
[2022-01-05] MEDS ORDERED: POTASSIUM CHLORIDE 20MEQ TABLET SR PO ONE (13:45)
[2022-01-05] MEDS ORDERED: ACETAMINOPHEN 160MG/5ML UDC PO NR (18:04)
[2022-01-05] MEDS ORDERED: ACETAMINOPHEN 325MG TABLET PO ONE (18:15)
[2022-01-05] MEDS ORDERED: LORAZEPAM 1MG TABLET PO ONE (20:15)
[2022-01-05] MEDS ORDERED: NITROGLYCERIN 0.4MG TABLET SL SL NR (21:45)
[2022-01-05] MEDS ORDERED: VISCOUS LIDOCAINE 2% 15 ML UDC MM NR (21:45)
[2022-01-05] MEDS ORDERED: AMLODIPINE 5MG TABLET PO NR (21:45)
[2022-01-06 00:18] VITALS: BP 139/79
== END 2022-01-06 01:00 | disposition short-term general hospital (02) ==
LOC: ER 11:43
DX: R07.89 Other chest pain (principal); E87.6 Hypokalemia; I10 Essential (primary) hypertension; K92.2 Gastrointestinal hemorrhage, unspecified; F10.229 Alcohol dependence with intoxication, unspecified; Y90.0 Blood alcohol level of less than 20 mg/100 ml; Z79.899 Other long term (current) drug therapy; Z20.822 Contact with and (suspected) exposure to COVID-19
CPT/HCPCS: 36415; 71045; 80053; 83880; 84484; 85025; 87426; 93005; 96365; 96375; 99285; C9803; J2270; J3480

== ENCOUNTER 2023-01-06 13:32 | Emergency (ER) | payer MEDICAID ==
[~2023-01-06] VITALS: Ht 177.8 cm; Wt 77.0 kg
[~2023-01-06 13:32] MED LIST changes: +LOSA-412 PO; -LOSA25TA3 PO
[2023-01-06 13:37] VITALS: O2SAT 99
[2023-01-06] MEDS ORDERED: ASPIRIN 81MG TABLET PO ONE (14:15)
[2023-01-06 14:56] LABS: HEMATOCRIT. 41.3 % (42.0-52.0); HEMOGLOBIN. 13.4 g/dL (14.0-18.0); MEAN CORPUSCULAR HGB CONC 32.5 g/dL (31.0-37.0); MEAN CORPUSCULAR VOLUME 104.6 fL (80.0-94.0); MEAN PLATELET VOLUME 8.1 fl (7.4-10.4); PLATELET 133 x1000/uL (130-400); RED BLOOD CELL COUNT 3.95 mill/uL (4.7-6.1); RED CELL DISTRIBUTION WIDTH 13.9 % (11.6-14.6); WHITE BLOOD COUNT 2.7 x1000/uL (4.5-11.0)
[2023-01-06 15:02] LABS: PARTIAL THROMBOPLASTIN TIME 27.7 sec (23.4-31.0); PROTHROMBIN TIME 11.2 sec (9.6-11.0)
[2023-01-06 15:05] LABS: DIFFERENTIAL COMMENT 1
[2023-01-06 15:42] LABS: PLATELET ESTIMATE NORMAL
[2023-01-06 16:32] LABS: ALANINE AMINOTRANSFERASE 334 IU/L (10-49); ALBUMIN 5.1 g/dL (3.2-4.8); ASPARTATE AMINOTRANSFERASE 237 IU/L (<34); BILIRUBIN TOTAL 0.6 mg/dL (0.1-1.0); CALCIUM 10.6 mg/dL (8.7-10.4); CARBON DIOXIDE 26 mEq/L (21-32); CHLORIDE 102 mEq/L (98-107); CREATININE 0.9 mg/dL (0.6-1.3); GLUCOSE 126 mg/dL (70-105); PROTEIN TOTAL 8.5 g/dL (6.0-8.3); SODIUM 139 mEq/L (136-145); TROPONIN I HIGH SENSITIVITY 6 ng/L (3.0-53); UREA NITROGEN BLOOD 12 mg/dL (9-23)
[2023-01-06 16:35] LABS: ETHANOL BLOOD < 10 mg/dL (<10)
[2023-01-06 18:23] LABS: TROPONIN I HIGH SENSITIVITY 7 ng/L (3.0-53)
[2023-01-06] MEDS ORDERED: AMLODIPINE 5MG TABLET PO ONE (23:00)
[2023-01-06] MEDS ORDERED: MORPHINE SULFATE 2 MG/ML CPJ (NOT FOR IM USE) IV ONE (23:00)
[2023-01-07] MEDS ORDERED: AMLODIPINE 5MG TABLET PO NR (01:30)
[2023-01-07] MEDS ORDERED: MORPHINE SULFATE 2 MG/ML CPJ (NOT FOR IM USE) IV NR (01:30)
[2023-01-07 01:34] VITALS: BP 186/103; PULSE 82; RESP 18; TEMP 98.4
== END 2023-01-07 01:55 | disposition short-term general hospital (02) ==
LOC: ER 13:32
DX: R07.89 Other chest pain (principal); I10 Essential (primary) hypertension; R00.0 Tachycardia, unspecified; F10.20 Alcohol dependence, uncomplicated; K92.2 Gastrointestinal hemorrhage, unspecified; I49.9 Cardiac arrhythmia, unspecified; Z79.899 Other long term (current) drug therapy
CPT/HCPCS: 80053; 80320; 83880; 83690; 85025; 85610; 85730; 84484; 36415; 71045; 93005; 99285; 96374; Z7610 ×2; J2270; G0480

== ENCOUNTER 2023-01-16 23:30 | Emergency (ER) | payer MEDICAID ==
[~2023-01-16] VITALS: Ht 182.9 cm; Wt 77.0 kg
[2023-01-16 23:35] VITALS: O2SAT 92
[2023-01-17] MEDS ORDERED: KETOROLAC 15MG/ML VIAL IV ONE (01:15)
[2023-01-17 01:20] LABS: BASOPHILS % 0.5 % (0.0-2.0); DIFFERENTIAL COMMENT 0; EOSINOPHILS % 5.5 % (0.0-5.0); HEMATOCRIT. 34.6 % (42.0-52.0); HEMOGLOBIN. 11.2 g/dL (14.0-18.0); LYMPHOCYTES % 25.5 % (20.0-50.0); MEAN CORPUSCULAR HEMOGLOBIN 34.6 pg (28.0-32.0); MEAN CORPUSCULAR HGB CONC 32.5 g/dL (31.0-37.0); MEAN CORPUSCULAR VOLUME 106.4 fL (80.0-94.0); MEAN PLATELET VOLUME 7.9 fl (7.4-10.4); MONOCYTES % 10.4 % (2.0-8.0); NEUTROPHILS % 58.1 % (40.0-76.0); PLATELET 208 x1000/uL (130-400); RED BLOOD CELL COUNT 3.25 mill/uL (4.7-6.1); RED CELL DISTRIBUTION WIDTH 14.3 % (11.6-14.6); WHITE BLOOD COUNT 4.1 x1000/uL (4.5-11.0)
[2023-01-17 01:36] LABS: ALANINE AMINOTRANSFERASE 232 IU/L (10-49); ALBUMIN 4.6 g/dL (3.2-4.8); ASPARTATE AMINOTRANSFERASE 189 IU/L (<34); BILIRUBIN TOTAL 0.4 mg/dL (0.1-1.0); CALCIUM 9.9 mg/dL (8.7-10.4); CARBON DIOXIDE 26 mEq/L (21-32); CHLORIDE 103 mEq/L (98-107); GLUCOSE 102 mg/dL (70-105); PROTEIN TOTAL 7.5 g/dL (6.0-8.3); SODIUM 138 mEq/L (136-145); UREA NITROGEN BLOOD 16 mg/dL (9-23)
[2023-01-17 01:38] LABS: TROPONIN I HIGH SENSITIVITY < 4 ng/L (3.0-53)
[2023-01-17 03:30] VITALS: TEMP 98.5
[2023-01-17] MEDS ORDERED: SODIUM CHLORIDE 0.9% 1,000 ML IV ONE (04:00)
[2023-01-17 05:25] LABS: TROPONIN I HIGH SENSITIVITY < 4 ng/L (3.0-53)
[2023-01-17] MEDS ORDERED: HYDR-4001 MT (06:14)
[2023-01-17] MEDS ORDERED: KETOROLAC 30MG/ML VIAL IM ONE (06:15)
[2023-01-17] MEDS ORDERED: IOHEXOL-350 100 ML BOTTLE ONE (06:41)
[2023-01-17 11:07] VITALS: BP 145/78; PULSE 87; RESP 17
== END 2023-01-17 11:09 | disposition home health service (06) ==
LOC: ER 23:30
DX: R07.9 Chest pain, unspecified (principal); I11.9 Hypertensive heart disease without heart failure; I48.91 Unspecified atrial fibrillation; Z88.8 Allergy status to other drugs, medicaments and biological substances
CPT/HCPCS: 99285; 80053; 83880; 85025; 85379; 84484; 36415; 71045; 71275; 96361; 96374; Q9967; J1885 ×2; Z7610 ×4

== ENCOUNTER 2023-01-28 15:51 | Emergency (ER) | payer MEDICAID ==
[~2023-01-28] VITALS: Ht 185.4 cm; Wt 85.0 kg
[~2023-01-28 15:51] MED LIST changes: +HYDR-4134 MT; +METO-396 MT; +QUET25TA MT
[2023-01-28 15:53] VITALS: TEMP 97.6; O2SAT 99
[2023-01-28] MEDS ORDERED: LORAZEPAM 2MG/ML CPJ IV ONE (16:15)
[2023-01-28] MEDS ORDERED: SODIUM CHLORIDE 0.9% 1,000 ML IV ONE (16:15)
[2023-01-28] MEDS ORDERED: ONDANSETRON HCL 4MG/2ML INJ IV ONE (17:00)
[2023-01-28] MEDS ORDERED: FAMOTIDINE 20MG/2ML VIAL IV ONE (17:00)
[2023-01-28] MEDS ORDERED: MORPHINE SULFATE 4 MG/ML CPJ (NOT FOR IM USE) IV ONE (17:00)
[2023-01-28] MEDS ORDERED: FAMOTIDINE 20MG/2ML VIAL IV NR (17:20)
[2023-01-28] MEDS ORDERED: LORAZEPAM 2MG/ML SYR IV NR (17:22)
[2023-01-28 19:13] LABS: CLARITY URINE CLEAR (CLEAR); COLOR URINE YELLOW (YELLOW); GLUCOSE URINE NEGATIVE (NEGATIVE); KETONES URINE NEGATIVE (NEGATIVE); LEUKOCYTE ESTERASE URINE NEGATIVE (NEGATIVE); NITRITE URINE NEGATIVE (NEGATIVE); OCCULT BLOOD URINE NEGATIVE (NEGATIVE); PH URINE 7.5 (4.5-8.0); PROTEIN URINE NEGATIVE (NEGATIVE); SPECIFIC GRAVITY URINE 1.007 (1.005-1.030); UROBILINOGEN URINE 0.2 E.U./dL (0.2-1.0)
[2023-01-28 19:21] LABS: BASOPHILS % 0.4 % (0.0-2.0); DIFFERENTIAL COMMENT 0; EOSINOPHILS % 0.4 % (0.0-5.0); HEMATOCRIT. 36.7 % (42.0-52.0); HEMOGLOBIN. 11.8 g/dL (14.0-18.0); LYMPHOCYTES % 12.5 % (20.0-50.0); MEAN CORPUSCULAR HEMOGLOBIN 34.2 pg (28.0-32.0); MEAN CORPUSCULAR HGB CONC 32.2 g/dL (31.0-37.0); MEAN CORPUSCULAR VOLUME 106.5 fL (80.0-94.0); MEAN PLATELET VOLUME 8.1 fl (7.4-10.4); MONOCYTES % 8.9 % (2.0-8.0); NEUTROPHILS % 77.8 % (40.0-76.0); PLATELET 218 x1000/uL (130-400); RED BLOOD CELL COUNT 3.45 mill/uL (4.7-6.1); RED CELL DISTRIBUTION WIDTH 14.4 % (11.6-14.6)
[2023-01-28 19:35] LABS: ALANINE AMINOTRANSFERASE 18 IU/L (10-49); ALBUMIN 3.1 g/dL (3.2-4.8); ASPARTATE AMINOTRANSFERASE 16 IU/L (<34); BILIRUBIN TOTAL 0.3 mg/dL (0.1-1.0); CALCIUM 6.9 mg/dL (8.7-10.4); CARBON DIOXIDE 20 mEq/L (21-32); CHLORIDE 114 mEq/L (98-107); ETHANOL BLOOD < 10 mg/dL (<10); GLUCOSE 83 mg/dL (70-105); PROTEIN TOTAL 5.1 g/dL (6.0-8.3); SODIUM 143 mEq/L (136-145); TROPONIN I HIGH SENSITIVITY < 4 ng/L (3.0-53); UREA NITROGEN BLOOD 8 mg/dL (9-23)
[2023-01-28 19:42] LABS: PROTHROMBIN TIME 11.1 sec (9.6-11.0)
[2023-01-28 20:00] VITALS: BP 158/106; PULSE 103; RESP 22
[2023-01-28] MEDS ORDERED: CHLORDIAZEPOXIDE 25MG CAPSULE PO ONE (20:00)
[2023-01-28] MEDS ORDERED: CHLORDIAZEPOXIDE 25MG CAPSULE PO NR (20:19)
== END 2023-01-28 22:57 | disposition home or self-care (01) ==
LOC: ER 15:51
DX: F10.239 Alcohol dependence with withdrawal, unspecified (principal); F10.229 Alcohol dependence with intoxication, unspecified; Y90.0 Blood alcohol level of less than 20 mg/100 ml; I11.9 Hypertensive heart disease without heart failure; I25.2 Old myocardial infarction; Z88.8 Allergy status to other drugs, medicaments and biological substances
CPT/HCPCS: 80053; 81003; 80320; 83880; 83690; 85025; 85610; 84484; 36415; 71045; 93005; 96361; 96374; 96375; 99285; J3490; J2060; J2405; J2270; J7030; Z7610 ×3; G0480

== ENCOUNTER 2023-02-02 12:45 | Emergency (ER) | payer MEDICAID ==
[~2023-02-02] VITALS: Ht 182.9 cm; Wt 73.0 kg
[~2023-02-02 12:45] MED LIST changes: +LACT10SO81 MT
[2023-02-02 12:49] VITALS: O2SAT 99
[2023-02-02 13:14] VITALS: TEMP 98.2
[2023-02-02] MEDS ORDERED: MAGNESIUM/ALUMINUM HYDROXIDE/SIMETHICONE 30ML UDC PO ONE (14:45)
[2023-02-02] MEDS ORDERED: ONDANSETRON HCL 4MG/2ML INJ IV ONE (14:45)
[2023-02-02] MEDS ORDERED: MORPHINE SULFATE 2 MG/ML CPJ (NOT FOR IM USE) IV ONE (14:45)
[2023-02-02] MEDS ORDERED: PANTOPRAZOLE SODIUM 40 MG/VIAL IV ONE (14:45)
[2023-02-02] MEDS ORDERED: SODIUM CHLORIDE 0.9% 1,000 ML IV ONE (14:45)
[2023-02-02 15:31] LABS: BASOPHILS % 0.7 % (0.0-2.0); DIFFERENTIAL COMMENT 0; HEMATOCRIT. 33.4 % (42.0-52.0); HEMOGLOBIN. 11.2 g/dL (14.0-18.0); LYMPHOCYTES % 36.5 % (20.0-50.0); MEAN CORPUSCULAR HGB CONC 33.6 g/dL (31.0-37.0); MEAN PLATELET VOLUME 7.8 fl (7.4-10.4); MONOCYTES % 13.8 % (2.0-8.0); PLATELET 184 x1000/uL (130-400); RED BLOOD CELL COUNT 3.21 mill/uL (4.7-6.1); RED CELL DISTRIBUTION WIDTH 14.1 % (11.6-14.6); WHITE BLOOD COUNT 3.4 x1000/uL (4.5-11.0)
[2023-02-02 15:47] LABS: INR 1.1; PROTHROMBIN TIME 11.6 sec (9.6-11.0)
[2023-02-02 16:00] LABS: ALANINE AMINOTRANSFERASE 24 IU/L (10-49); ASPARTATE AMINOTRANSFERASE 32 IU/L (<34); BILIRUBIN TOTAL 0.3 mg/dL (0.1-1.0); CARBON DIOXIDE 24 mEq/L (21-32); CHLORIDE 104 mEq/L (98-107); ETHANOL BLOOD < 10 mg/dL (<10); GLUCOSE 87 mg/dL (70-105); POTASSIUM 4.6 mEq/L (3.5-5.1); PROTEIN TOTAL 7.3 g/dL (6.0-8.3); SODIUM 137 mEq/L (136-145); UREA NITROGEN BLOOD 22 mg/dL (9-23)
[2023-02-02 16:01] LABS: CREATININE 1.7 mg/dL (0.6-1.3); TROPONIN I HIGH SENSITIVITY < 4 ng/L (3.0-53)
[2023-02-02 17:45] LABS: TROPONIN I HIGH SENSITIVITY 4 ng/L (3.0-53)
[2023-02-02 19:28] LABS: *AMPHETAMINES SCREEN URINE NEGATIVE (NEGATIVE); *BARBITURATES SCREEN URINE NEGATIVE (NEGATIVE); *BENZODIAZEPINES SCREEN URINE PRESUMPTIVE POSITIVE (NEGATIVE); *COCAINE SCREEN URINE NEGATIVE (NEGATIVE); CANNABINOID URINE SCREEN NEGATIVE (NEGATIVE); ECSTASY MDMA SCREEN URINE NEGATIVE (NEGATIVE); METHADONE URINE SCREEN Neg (NEGATIVE); OPIATES URINE SCREEN PRESUMPTIVE POSITIVE (NEGATIVE); PHENCYCLIDINE URINE SCREEN NEGATIVE (NEGATIVE)
[2023-02-03 02:09] VITALS: BP 106/71; PULSE 66; RESP 16
== END 2023-02-03 05:34 | disposition short-term general hospital (02) ==
LOC: ER 12:45
DX: E86.0 Dehydration (principal); N17.9 Acute kidney failure, unspecified; R07.9 Chest pain, unspecified; I10 Essential (primary) hypertension; F10.10 Alcohol abuse, uncomplicated; Z88.8 Allergy status to other drugs, medicaments and biological substances; Z79.899 Other long term (current) drug therapy; Y90.0 Blood alcohol level of less than 20 mg/100 ml
CPT/HCPCS: 80053; 80305; 80320; 82270; 83880; 83690; 85025; 85610; 84484; 36415; 71045; 93005; 96361; 96374; 96375; 99285; J2405; C9113; J2270; J7030; Z7610 ×3; G0480